=== PATIENT | male | born 1960 | race Caucasian/White ===

== ENCOUNTER 2018-04-23 10:55 | Observation (INO) | payer OTHER ==
[2018-04-23] MEDS ORDERED: BACITRACIN IRRIGATION/NS 50,000 UNITS/1,000 ML BTL IRR ONE (10:57)
[2018-04-23] MEDS ORDERED: ceFAZolin 2 GM/DEXTROSE 100 ML IV ONE (10:57)
[2018-04-23] MEDS ORDERED: NS 1,000 ML IV ONE (10:57)
[2018-04-23 11:28] LABS: PLATELET COUNT 177 10^3/uL (150-400)
[2018-04-23 11:38] LABS: PROTIME(PATIENT) 13.4 SEC (12.0-15.0)
--- NOTE | 2018-04-23 12:38 | PDGENHP ---
History & Physical Chief Complaint: CHF with NYHA class 2-3 symptoms, ICM History of Present Illness: History of ICM with CHF and NYHA class 2-3 symptoms. LVEF 30%, QRS duration 141ms Relevant Physical Exam: General: A&Ox4, no apparent distress. Respiratory: CTA. Cardiac: Regular rate and rhythm, S1, S2 Cardiorespiratory Assessment: Proceed with BiV ICD implant as planned for today.
[2018-04-23] MEDS ORDERED: MIDAZOLAM 2 MG/2 ML VIAL IVP ONE (12:52)
--- NOTE | 2018-04-23 12:52 | PDANEPAE ---
ANE History of Present Illness BiV implant, ICCM, EF 30% ANE Past Medical History - Cardiovascular History Hx Hypertension: Yes Hx Arrhythmias: No Hx Chest Pain: No Hx Coronary Artery / Peripheral Vascular Disease: Yes Hx CHF / Valvular Disease: Yes Hx Palpitations: No - Pulmonary History Hx COPD: No Hx Asthma/Reactive Airway Disease: No Hx Recent Upper Respiratory Infection: No Hx Oxygen in Use at Home: No Hx Sleep Apnea: No - Neurologic History Hx Cerebrovascular Accident: No Hx Seizures: No Hx Dementia: No - Endocrine History Hx Diabetes: No Hypothyroid: No Hyperthyroid: No Obesity: moderate - Renal History Hx Renal Disorders: No - Liver History Hx Hepatic Disorders: No - Neurological & Psychiatric Hx Hx Neurological and Psychiatric Disorders: No - Cancer History Hx Cancer: No - Congenital Disorder History Hx Congenital Disorders: No - GI History GERD: no Hx Gastrointestinal Disorders: No ANE Review of Systems Review of systems is: negative Review of Systems: - Exercise capacity Exercise capacity: >=4 METS (rides dirtbikes) ANE Patient History - Allergies Allergies/Adverse Reactions: No Known Allergies Allergy (Verified 04/21/18 11:24) - Home Medications Home Medications: Albuterol [Proventil Inhaler HFA (*)] 1 - 2 puffs IH Q4H PRN 04/21/18 [Last Taken 03/06/18 10:00] Aspirin [Aspirin 81mg (*)] 81 mg PO DAILY 04/21/18 [Last Taken 04/21/18 21:00] Atorvastatin Calcium [Lipitor 40 mg (*)] 40 mg PO HS 04/21/18 [Last Taken 22:00] Carvedilol [Coreg (*)] 3.125 mg PO BID 04/21/18 [Last Taken 04/22/18 22:00] Clopidogrel Bisulfate [Plavix (*)] 75 mg PO HS 04/21/18 [Last Taken 04/21/18 21: 00] Furosemide [Lasix 20 MG (*)] 20 mg PO Q2D 04/21/18 [Last Taken 04/22/18 12:00] Losartan Potassium [Cozaar 25 mg (*)] 25 mg PO DAILY 04/21/18 [Last Taken 12:00] Potassium Cl [Klor-Con] 10 meq PO Q2D 04/21/18 [Last Taken 04/22/18 12:00] Spironolactone [Aldactone 25 MG (*)] 25 mg PO DAILY@12 04/21/18 [Last Taken 12:00] - NPO status NPO Status: no food or drink >8 hours - Anes Hx Anes Hx: slow to awaken from anesthesia - Smoking Hx Smoking Status: Never smoked Marijuana use: No - Alcohol Use Alcohol Use: Heavy (3/day) - Family Anes Hx Family Anes Hx: none ANE Labs/Vital Signs - Labs Result Diagrams: 04/23/18 11:20 04/23/18 11:20 - Vital Signs Height: 172.72 cm Weight: 95.254 kg ANE Physical Exam - Airway Neck exam: FROM Mallampati Score: Class 2 - Pulmonary Pulmonary: no respiratory distress - Cardiovascular Cardiovascular: regular rate and rhythym - ASA Status ASA Status: III ANE Anesthesia Plan Anesthesia Plan: MAC
[2018-04-23] MEDS ORDERED: BUPIVACAINE 0.75% 10 ML SDV ONE (13:10)
[2018-04-23] MEDS ORDERED: LIDOCAINE 1% 300 MG/30 ML SDV ONE (13:10)
[2018-04-23] MEDS ORDERED: IOPAMIDOL (ISOVUE-300) 100 ML BTL ONE (13:11)
[2018-04-23] MEDS ORDERED: LIDOCAINE 2% 5 ML SDV ONE (13:23)
[2018-04-23] MEDS ORDERED: PROPOFOL/EMULSION 500 MG/50 ML BOTTLE IV ONE ×2 (13:23→14:26)
[2018-04-23] MEDS ORDERED: fentaNYL 100 MCG/2 ML INJ ONE (13:23)
[2018-04-23] MEDS ORDERED: PROPOFOL 200 MG/20 ML VIAL ONE (14:25)
--- NOTE | 2018-04-23 15:03 | CPEKG ---
Test Reason : OPEN Blood Pressure : / mmHG Vent. Rate : 066 BPM Atrial Rate : 066 BPM P-R Int : 189 ms QRS Dur : 134 ms QT Int : 412 ms P-R-T Axes : 062 -54 -42 degrees QTc Int : 432 ms Sinus rhythm Left bundle branch block Confirmed by Torsten Miller ([id number]) on 04/23/2018 3:03:05 PM Referred By: Сергей Holder Confirmed By:Torsten Miller
[2018-04-23] MEDS ORDERED: NALOXONE HCL 0.4 MG/ML INJ IVP PRN (15:17)
--- NOTE | 2018-04-23 15:17 | POSTANESTH ---
Post Anesthetic Evaluation Cardiovascular Status: Normal, Stable Respiratory Status: Normal, Stable Level of Consciousness/Mental Status: Can Participate in Eval Pain Control: Adequate, Prn Tx Ordered Nausea/Vomiting Control: Adequate, Prn Tx Ordered Complications Possibly Related to Anesthesia: None Noted
--- NOTE | 2018-04-23 17:05 | EPPROC ---
Electrophysiology Procedure Note: PROCEDURE PERFORMED: 1. Implantation of an A-BiV Implantable Cardioverter Defibrillator 2. Subclavian vein angiography 3. Fluoroscopy INDICATION: Ischemic cardiomyopathy NYHA class 2-3 symptoms QRS duration more than 120 milliseconds PROCEDURE NOTE: Patient presented to the cardiac catheterization laboratory in a fasting, post absorptive state. Dr. Bello Garcia administered sedation. The left infraclavicular area was prepped and draped in the usual sterile fashion. Lidocaine plus bupivacaine was used for local anesthesia. Left subclavian venography was performed by injection of iodinated contrast into the left antecubital vein. This was done to assure patency of the vein and also to assess for any anatomical aberrations. Using a combination of blunt and sharp dissection and electrocautery, the dissection was carried down to the prepectoral fascia. A pocket was made in this anatomical plane. All bleeding was controlled with electrocautery. The pocket was packed with gauze soaked in antibiotic solution. Fluoroscopy was utilized during the entire procedure for venous access and placement of the leads Using a direct stick technique the left extra thoracic axillary vein was accessed with 3 sticks using the modified Seldinger technique. Placement of the guide wires into the venous system was confirmed by low pressure blood return and also by visualizing the guide wires advancing into the inferior vena cava. A purse string suture was applied around the guide wires. Two #7 Setswana sheaths were advanced under fluoroscopic guidance over the guide wires. An active fixation ventricular ICD lead was advanced into the right ventricular apex and screwed in place. An active fixation atrial lead was advanced into the right atrial appendage and screwed in place. The peel away sheaths were removed. Pacing thresholds, sensing parameters and lead impedances were measured. There was no diaphragmatic stimulation at maximum output. The leads were sutured to the prepectoral fascia with 3 nonabsorbable sutures. A 9 Setswana sheath was advanced over the guide wire into the subclavian vein. Using a [employer] delivery system the coronary sinus ostium was engaged. Occlusion retrograde coronary sinus angiography was performed in three views. A coronary sinus quadrapolar lead was advanced into the coronary sinus. An angioplasty wire was advanced through the lead and advanced into the mid portion of the anterolateral branch of the coronary sinus. The lead was advanced over the angioplasty wire. Pacing threshold, sensing and impedance was determined. There was no diaphragmatic stimulation at maximum output. The delivery system and the 9 Fr sheath were peeled away. Again, pacing threshold, sensing and impedance was determined. There was no diaphragmatic stimulation at maximum output. The CS lead was secured to the prepectoral fascia with 3 nonabsorbable sutures. Pacing threshold and sensing parameters of the RA, RV and LV leads were checked again. The gauze packing was removed from the ICD pocket. The pocket was again inspected for any bleeding. The leads were attached to the pacemaker securely. The ICD was inserted into the pocket and secured in place with a nonabsorbable suture. Fluoroscopy was performed in TORRES and SPANISH planes to verify right sided placement of the leads. Also fluoroscopy of the pacemaker pocket was performed. The ICD pocket was closed in 3 layers with absorbable monocryl sutures and chace. Appropriate dressing was applied. The patient left the cardiac catheterization laboratory in stable condition. Serial Numbers: 1. Device [facility] [id number] 2. Atrial Lead [facility] 2088 TC SN [id number] 3. Right Ventricular Lead [facility] 7122 Q [id number] 4. Left Ventricular Lead [facility] 1457 Q [id number] Stimulation Thresholds & Impedance Measurements: 1. Atrial Lead P 4.7 mV 535 ohm 0.7 V 0.5 ms 2. Right Ventricular Lead R 11 mV 771 ohm 0.7 V 0.5 ms 3. Left Ventricular Lead 1228 ohm 1.3 V 0.5 ms Ho Pacing Parameters: 1. Pacing mode DDD 2. Lower rate60 ppm 3. Upper emxz816 ppm Tachycardia therapy parameters: VF zone : Detection 200 bpm, ATP while charging, 40 J VT zone : Detection 180 bpm ATP x 3, 26 J 40 J Patient Problems: Problems Problem Status Onset AMI (acute myocardial infarction) Acute
[2018-04-23] MEDS: CARVEDILOL 3.125 MG TAB PO SCH (20:29)
[2018-04-23] MEDS ORDERED: ATORVASTATIN CALCIUM 40 MG TAB PO SCH (21:00)
[2018-04-23] MEDS ORDERED: CLOPIDOGREL BISULFATE 75 MG TAB PO SCH (21:00)
[2018-04-24 04:52] LABS: PLATELET COUNT 152 10^3/uL (150-400)
[2018-04-24 05:19] LABS: INR 1.01 (0.83-1.16); PROTIME(PATIENT) 13.5 SEC (12.0-15.0)
[2018-04-24] MEDS: CARVEDILOL 3.125 MG TAB PO SCH (07:48)
--- NOTE | 2018-04-24 08:07 | CPEKG ---
Test Reason : OPEN Blood Pressure : / mmHG Vent. Rate : 062 BPM Atrial Rate : 061 BPM P-R Int : 198 ms QRS Dur : 136 ms QT Int : 437 ms P-R-T Axes : 066 -69 -63 degrees QTc Int : 444 ms Atrial-sensed ventricular-paced rhythm Confirmed by Torsten Miller ([id number]) on 04/24/2018 8:06:44 AM Referred By: Сергей Holder Confirmed By:Torsten Miller
[2018-04-24] MEDS ORDERED: PNEUMOCOCCAL 0.5ML VACCINE VIAL (PNEUMOVAX 23) IM ONE ×2 (08:43→12:30)
[2018-04-24] MEDS ORDERED: ASPIRIN 81 MG CHEWABLE TAB PO SCH (09:00)
[2018-04-24] MEDS ORDERED: LOSARTAN POTASSIUM 25 MG TAB PO SCH (09:00)
[2018-04-24 11:26] VITALS: BP 133/71
[2018-04-24] MEDS ORDERED: SPIRONOLACTONE 25 MG TAB PO SCH (12:00)
--- NOTE | 2018-04-24 14:58 | CPEKG ---
Test Reason : OPEN Blood Pressure : / mmHG Vent. Rate : 064 BPM Atrial Rate : 064 BPM P-R Int : 176 ms QRS Dur : 144 ms QT Int : 423 ms P-R-T Axes : 177 259 250 degrees QTc Int : 437 ms Atrial-sensed ventricular-paced complexes Confirmed by Torsten Miller ([id number]) on 04/24/2018 2:57:51 PM Referred By: Сергей Holder Confirmed By:Torsten Miller
--- NOTE | 2018-04-25 07:13 | GDS ---
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 ADMISSION DIAGNOSES: 1. Ischemic cardiomyopathy. 2. Congestive heart failure with [place] [employer] Class 2-3 symptoms. DISCHARGE DIAGNOSES: Ischemic cardiomyopathy and congestive heart failure, status post implantation of a biventricular implantable cardioverter defibrillator. HOSPITAL COURSE: Patient presented 04/23/2018, for implantation of a biventricular AICD in the setting of ischemic cardiomyopathy with NYHA class 2- 3 symptoms and wide QRS measuring 120 milliseconds. He underwent successful implantation of a biventricular implantable cardioverter-defibrillator with Dr. Сергей Holder, without any intra procedure complications. He has done very well in the postprocedure setting with device interrogation this morning demonstrating normal device function and chest x-ray demonstrating appropriate placement of all of his implanted leads. He has been up ambulating around his room this morning without issue, and he is appropriate and stable for discharge home today.. PHYSICAL EXAMINATION: GENERAL: He is alert and oriented x4. No apparent distress. VITAL SIGNS: Blood pressure 133/71, heart rate 66, respiratory rate 16, SpO2 95% on room air, and temp 36.8 degrees Celsius. RESPIRATORY: Lungs are clear to auscultation without adventitious breath sounds. CARDIAC: Normal S1, S2. No S3 or S4. Rhythm is regular. ABDOMEN: Normoactive bowel sounds x4 quadrants. No masses or tenderness. Abdomen soft to palpation. SKIN: Left pectoral incision with clean, dry dressing intact. No evidence of hematoma or oozing to this site. Skin is pink, dry without cyanosis, or clubbing.. EXTREMITIES: Pulses are 2+ bilaterally, no edema. LABORATORY STUDIES: Drawn April 24, demonstrated CBC and BMP stable compared to preprocedure. PROCEDURES: Implant of a biventricular implantable cardio defibrillator as mentioned above. Post procedure x-ray demonstrates normal lead positioning. DISCHARGE DISPOSITION: Patient will be discharged home in stable condition under activity restrictions as below. DISCHARGE MEDICATIONS: Please see discharge medication reconciliation sheet for full details. Please note that there have been no new medication changes during this hospitalization. DISCHARGE INSTRUCTIONS: Post AICD instructions reviewed with patient in detail. 1. He understands that he may not lift his left arm above the level of the shoulder for the next 6 weeks. 2. He will keep his left dressing clean and dry for the next week. If it becomes saturated for any reason, he will remove this distressing and keep it open to air. 3. He may drive 48 hours after his procedure and he will follow up in our clinic in 1 week for a device check. He will also follow up with Dr. Holder in the next 4 weeks. At the time verbalized understanding regarding all discharge instructions. He will contact our clinic with any new or concerning symptoms prior to these upcoming visits. Time spent on discharge greater than 30 minutes. /[id number]/MODL MTDD
[2018-04-25] MEDS ORDERED: FUROSEMIDE 20 MG TAB PO SCH (09:00)
[2018-04-25] MEDS ORDERED: POTASSIUM CL 10 MEQ TAB PO SCH (09:00)
== END 2018-04-24 13:40 | disposition home or self-care (01) ==
LOC: FCATH 10:55 → F2W 15:25
PROVIDERS: ADMIT Internal Medicine Cardiovascular Disease; ATTEND Internal Medicine Cardiovascular Disease
DX: I25.5 Ischemic cardiomyopathy (principal); I50.9 Heart failure, unspecified; I25.10 Atherosclerotic heart disease of native coronary artery without angina pectoris
CPT/HCPCS: C1769; C1777; C1882; C1898; C1900; G0008; G0009; G0378; J0690; J2250; J2704; J3010; Q9967

== ENCOUNTER 2018-04-28 09:32 | Emergency (ER) | payer OTHER ==
[2018-04-28 10:11] LABS: PLATELET COUNT 156 10^3/uL (150-400)
--- NOTE | 2018-04-28 10:13 | EDPHY ---
HPI/HX/ROS/PE/MDM Narrative: CHIEF COMPLAINT: Chest pain HISTORY OF PRESENT ILLNESS: This is an anticoagulated (clopidogrel, ASA) 57-year-old male who underwent implantation of a biventricular AICD in the setting of ischemic cardiomyopathy and CHF with Dr. Holder on 04/23/18, five days ago. He has complex cardiac history including three prior myocardial infarctions (most recently 5 years ago), stent placement x8, and heart failure, EF 30%. He presents today with chest pain which began around midnight. This is completely different from his post- surgical discomfort, which by yesterday had largely relieved, but also does not feel like his prior MIs. Initially, he developed cramping in his upper right chest. This then extended across his chest. It is exacerbated by movement and by deep inspiration. Endorses some mild lightheadedness and dizziness associated with his discomfort. He tried taking his nitroglycerin at home, as well as an antacid. Neither of these relieved his medications. No fever, chills , shortness of breath, palpitations, vomiting, diarrhea, urinary complaints, headache, lightheadedness. REVIEW OF SYSTEMS: A comprehensive 10 system review of systems is otherwise negative aside from elements mentioned in the history of present illness and medical decision making. PAST MEDICAL HISTORY: Biventricular AICD placement 04/23/18. History of multiple MIs. CAD s/p stent placement x8. Heart failure. Hernia surgery. GERD. Hypertension. No history of PEs or DVTs. Patient is anticoagulated on clopidogrel and aspirin. SOCIAL HISTORY: Lives in [place]. Single. Does not abuse tobacco, drugs, or alcohol. VITAL SIGNS: Reviewed by me GENERAL: Well-developed, well-nourished, resting comfortably in no respiratory distress. HEENT: Atraumatic. Eyes: No icterus, no injection. Mouth: moist mucous membranes. No erythema or lesions. Neck: supple with no adenopathy. LUNGS: Clear to auscultation bilaterally, no wheezes, rhonchi or rales. CARDIAC: Surgical dressing in place over left upper chest. Ecchymoses over the lower sub-sternal area - the patient notes he did not observe this yesterday evening before bed. Regular rate and rhythm. Distant heart sounds. CHEST: Mild tenderness to palpation across the anterior chest wall especially in the right pectoralis muscle. ABDOMEN: Soft, nontender, nondistended, bowel sounds normal. BACK: No CVA tenderness. EXTREMITIES: No trauma. No edema. Range of motion is normal throughout. NEURO: Alert and oriented, grossly nonfocal. SKIN: Warm and dry, no rash. PSYCHIATRIC: Normal mentation, no agitation. Portions of this note were transcribed by a medical laboratory technicians. I personally performed a history, physical exam, medical decision making, and confirmed accuracy of information the transcribed note. ED Course: 57 y/o male with complex cardiac history who is 5 days s/p biventricular AICD placement presents with chest pain which began around midnight. On exam he has ecchymoses over the lower sub-sternal area - the patient notes he did not observe this yesterday evening before bed. Heart sounds are distant. Plan for EKG, chest x-ray, labs including CBC chemistries, troponin. Patient also had echocardiogram ordered to evaluate for pericardial effusion. POC troponin 0.03. Plan for lab troponin for confirmation. 12-LEAD EKG: Please see the full report in [employer]. My interpretation: Ventricular-paced rhythm. Laboratory troponin 0.020. 12:[address] Rios, area manager. Echo reveals low ejection fraction which had been noted previously, although the ejection fraction is less than is post pacer placement.. No effusion. No etiology to explain the patient's chest pain on this echocardiogram. [employer] Supervisor from [facility] present to the emergency department. Patient's pacemaker/defibrillator was interrogated. No evidence of firing or defibrillation. Tech is somewhat concerned regarding settings on the pacemaker and positioning of the carotid sinus lead. Settings were adjusted. He discussed the situation with Dr. Holder. Patient has a follow-up appointment with Dr. Holder in 2 days. Patient was discharged from the emergency department. He was feeling significantly improved and anxious to go. After the patient left, patient's D-dimer was reported at 0.68, minimally elevated, with an age adjusted cutoff of 0.58. I attempted to reach the patient to discuss these findings. I did contact him on 04/30. Reports feeling well. He has had only intermittent episodes of chest discomfort and notes that he has had does have a ecchymosis on his anterior chest wall. He has an appointment tomorrow with Dr. Holder. He he will discuss the D-dimer results with Dr. Holder. I feel the patient is at low risk to have a pulmonary embolism, was not hypoxic, tachycardic, tachypneic on arrival to the emergency department and was on Eliquis as well as aspirin. However, as he does continue to have some anterior chest discomfort, patient will discuss with Dr. Holder tomorrow. MDM: After history and physical examination, the differential for chest pain was considered, including but not limited to, myocardial ischemia, acute coronary syndrome, pulmonary embolus, chest wall pain, pleural effusion, pleural inflammation and pulmonary infectious causes. - Data Points Imaging Results: CXR: Impression: Stable x3 days without delayed pneumothorax. Dictated By: Brandt Hanna MD Imaging: I viewed and interpreted images myself Laboratory Results: Laboratory Results 04/28/18 09:46 04/28/18 09:46 Point of Care Test Results: Chemistry 04/28/18 09:48 POC Troponin I 0.03 ng/mL ng/mL (0.00-0.08) General Time Seen by Provider: 04/28/18 09:56 Initial Vital Signs: Initial Vital Signs Temperature (C) 36.9 C 04/28/18 09:36 Heart Rate 75 04/28/18 09:36 Respiratory Rate 18 04/28/18 09:36 Blood Pressure 140/90 H 04/28/18 09:36 O2 Sat (%) 99 04/28/18 09:36 O2 Delivery Mode Room Air Allergies/Adverse Reactions: No Known Allergies Allergy (Verified 04/28/18 09:34) Home Medications: Medication Instructions Recorded Albuterol [Proventil Inhaler HFA 1 - 2 puffs IH Q4H PRN 04/21/18 (*)] Aspirin [Aspirin 81mg (*)] 81 mg PO DAILY 04/21/18 Atorvastatin Calcium [Lipitor 40 40 mg PO HS 04/21/18 mg (*)] Carvedilol [Coreg (*)] 3.125 mg PO BID 04/21/18 Clopidogrel Bisulfate [Plavix (*)] 75 mg PO HS 04/21/18 Furosemide [Lasix 20 MG (*)] 20 mg PO Q2D 04/21/18 Losartan Potassium [Cozaar 25 mg 25 mg PO DAILY 04/21/18 (*)] Potassium Cl [Klor-Con 10 meq (RX)] 10 meq PO Q2D 04/21/18 Spironolactone [Aldactone 25 MG 25 mg PO DAILY@12 04/21/18 (*)] Departure - Departure Disposition: Home, Routine, Self-Care Clinical Impression: Chest pain Qualifiers: Chest pain type: unspecified Qualified Code(s): R07.9 - Chest pain, unspecified Condition: Good Instructions: Chest Pain (ED) Additional Instructions: Return to the Emergency Department for fever, chest pain, shortness of breath, increasing pain or other worsening of condition. Take 650mg Tylenol every 4-6 hours as needed for pain. Follow up with your area manager as directed. Follow up with your primary care provider. Referrals: Pedrito Burger MD [Primary Care Provider] - As per Instructions Report Scribed for: Jaci Hardwick Report Scribed by: Brooke Patel Date of Report: 04/28/18 Time of Report: 10:13
[2018-04-28] MEDS ORDERED: PERFLUTREN LIPID MICROSPHERES 1.1 MG/ML VIAL IV ONE (10:51)
--- NOTE | 2018-04-28 12:49 | ECHO ---
[email or web address] [address] [address] Main: [phone] Fax: Transthoracic Echocardiogram Name: ALANIS DOUGLAS MR#: [id number] Study Date: 04/28/2018 Study Time: 10:36 AM Date of : 1960 Age: 57 year(s) Height: 172.7 cm (68 in.) Weight: 95.26 kg (210 lb.) BSA: 2.09 m2 Gender: Male Examination: Echo with Definity Indication: Chest pain/ecchymosis/post pacemaker placement Image Quality: Technically Difficult Contrast: Requested by: Jaci Hardwick BP: / Heart Rate: Rhythm: Indication: Chest pain/ecchymosis/post pacemaker placement Procedure Staff Kiln Mechanic: Makeda Sr RDCS Reading Physician: Mary Rios MD Requesting Provider: Conclusions: Severely dilated left ventricle. Severely reduced systolic LV function. The ejection fraction is estimated to be 20-25 %. Grade 3 diastolic dysfunction (reversible restrictive LV filling pattern). The Anterior septum is thin and akinetic. Remaining segments are severely hypokinetic. No evidence of LV apical thrombus with Definity imaging.. Normal size right ventricle. There is a pacemaker lead noted in the right ventricle. The left atrium is moderately dilated. Mild to moderate mitral regurgitation. No pericardial effusion. Compared with 03/24/2018 right heart pacemaker now seen. Ejection fraction is slightly worse. Measurements: Chambers Valvular Assessment AV/MV Valvular Assessment TV/PV Normal Normal Normal Name Value Range Name Value Range Name Value Range IVSd (2D): 0.3 cm (0.6 cm-1.1 AV Vmax: 1.09 m/s (1 m/s-1.7 cm) m/s) LVDd (2D): 7.2 cm (4.2 cm-5.9 AV maxP mmHg ( - ) cm) AV meanP mmHg ( - ) LVPWd (2D): 1.0 cm (0.6 cm-1 MV E Vmax: 0.90 m/s ( - ) cm) MV A Vmax: 0.78 m/s ( - ) EF Range: 20-25 % MV E/A: 1.15 ( - ) Continued Measurements: Chambers Valvular Assessment AV/MV Patient: ALANIS DOUGLAS Study Date: 04/28/2018 Page 1 of 2 10:36 AM Name Value Name Value LADs: 4.3 cm MV E/E' Septal: 22.60 LADs Lon.6 cm MV E/E' Lateral: 12.70 LA Area: 26.0 cm2 LA Volume: 96 ml LA Volume Index: 45.9 ml/m2 Findings: Left Ventricle: Severely dilated left ventricle. Severely reduced systolic LV function. The ejection fraction is estimated to be 20-25 %. Grade 3 diastolic dysfunction (reversible restrictive LV filling pattern). The Anterior septum is thin and akinetic. Remaining segments are severely hypokinetic. No evidence of LV apical thrombus with Definity imaging.. Right Ventricle: Normal size right ventricle. There is a pacemaker lead noted in the right ventricle. Left Atrium: The left atrium is moderately dilated. Right Atrium: The right atrium is normal in size. Mitral Valve: The mitral valve is normal in appearance and function. Mild to moderate mitral regurgitation. Aortic Valve: The aortic valve is normal in appearance and function. The aortic valve is tri-leaflet. Tricuspid Valve: The tricuspid valve is normal in appearance and function. Trivial tricuspid valve regurgitation. Pulmonic Valve: The pulmonic valve is normal in appearance and function. Aorta: The aorta is normal. Pericardium: No pericardial effusion. Exam Comments: (No Signature Object) Patient: ALANIS DOUGLAS Study Date: 04/28/2018 Page 2 of 2 10:36 AM [id number]
[2018-04-28 14:11] VITALS: BP 122/68
--- NOTE | 2018-04-30 16:10 | CPEKG ---
Test Reason : OPEN Blood Pressure : / mmHG Vent. Rate : 076 BPM Atrial Rate : 077 BPM P-R Int : 200 ms QRS Dur : 141 ms QT Int : 410 ms P-R-T Axes : 085 266 159 degrees QTc Int : 462 ms Atrial-sensed ventricular-paced complexes Confirmed by Jaci Hardwick ([id number]) on 04/30/2018 4:09:32 PM Referred By: PHYSICIAN ED Confirmed By:Jaci Hardwick
== END 2018-04-28 14:14 | disposition home or self-care (01) ==
LOC: UNDOADMOB 12:44
DX: R07.9 Chest pain, unspecified (principal); R42 Dizziness and giddiness; I11.0 Hypertensive heart disease with heart failure; I50.9 Heart failure, unspecified; I25.5 Ischemic cardiomyopathy; I25.2 Old myocardial infarction; K21.9 Gastro-esophageal reflux disease without esophagitis; Z79.01 Long term (current) use of anticoagulants; Z95.5 Presence of coronary angioplasty implant and graft; Z95.810 Presence of automatic (implantable) cardiac defibrillator
CPT/HCPCS: 84484-ER; Q9957

== ENCOUNTER → 2018-05-01 | Outpatient (CLI) | payer OTHER ==
[~2018-05-01] MED LIST: IOPAMIDOL (ISOVUE 370) 100 ML BTL IV ONE
== END ==
LOC: FIMAGING 11:57
PROVIDERS: ATTEND Internal Medicine Cardiovascular Disease
DX: R07.9 Chest pain, unspecified (principal); R06.02 Shortness of breath; R79.89 Other specified abnormal findings of blood chemistry
CPT/HCPCS: Q9967

== ENCOUNTER 2018-07-24 10:54 | Inpatient (IN) | payer OTHER ==
[2018-07-24] MEDS ORDERED: diphenhydrAMINE 25 MG CAP PO ONE ×2 (10:55→11:25)
[2018-07-24] MEDS ORDERED: NS 1,000 ML IV ONE (10:55)
[2018-07-24] MEDS ORDERED: FAMOTIDINE 20 MG TAB PO ONE (10:55)
[2018-07-24] MEDS ORDERED: DIAZEPAM 5 MG TAB PO ONE (10:55)
[2018-07-24] MEDS ORDERED: ASPIRIN EC 325 MG TAB PO ONE ×2 (10:55→11:25)
--- NOTE | 2018-07-24 11:10 | PDPROPOC ---
Sedation Plan of Care Sedation Plan of Care: vital signs stable, mental status noted, patient educated of risks, benefits, alternatives, patient can tolerate sedation ASA Classification: ASA 2 Planned drugs: fentanyl, midazolam Mallampati Score: Class 1 Mallampati Reference Image: Patient passed 3-3-2 rule?: Yes
--- NOTE | 2018-07-24 11:10 | PDHPUP ---
History & Physical Update H&P update statement: This history and physical update is based on an assessment of the patient which was completed after admission or registration (within 24 hours), but prior to the surgery/procedure. H&P update: H&P reviewed & patient examined, no change in patient's condition since H&P completed
[2018-07-24] MEDS ORDERED: FAMOTIDINE 20 MG TAB ONE (11:25)
[2018-07-24] MEDS ORDERED: DIAZEPAM 5 MG TAB ONE (11:27)
[2018-07-24 11:46] LABS: INR 1.01 (0.83-1.16); PROTIME(PATIENT) 12.9 SEC (12.0-15.0)
[2018-07-24 11:47] LABS: PLATELET COUNT 191 10^3/uL (150-400)
[2018-07-24] MEDS ORDERED: VERAPAMIL 5 MG/2 ML VIAL ONE (12:14)
[2018-07-24] MEDS ORDERED: MIDAZOLAM 2 MG/2 ML VIAL ONE ×2 (12:14→15:17)
[2018-07-24] MEDS ORDERED: HEPARIN 10,000 UNIT/10 ML MDV (1,000 UNIT/ML) ONE (12:14)
[2018-07-24] MEDS ORDERED: fentaNYL 100 MCG/2 ML INJ ONE (12:14)
[2018-07-24] MEDS ORDERED: IOPAMIDOL (ISOVUE 370) 100 ML BTL IV ONE (12:15)
[2018-07-24] MEDS ORDERED: LIDOCAINE 1% 5 ML SDV ONE (12:15)
--- NOTE | 2018-07-24 15:39 | PDDXCAT ---
Diagnostic Cath Note - . Date: 07/24/18 Technology Auditor: Michael Indication: Sustained (>30 sec) monomorphic ventricular tachycardia - Procedure Access: left wrist Procedure: left heart catheterization, coronary angiography, left ventriculogram - Materials Left Heart Cath size: 5F Left Heart Cath materials: JL4.0, pigtail, Kingston's R - Findings-Left Heart Catheterization LM: Unobstructed LAD: Heavily stented with diffuse InStent restenosis in the mid and distal portion. 2 principal diagonals with ostial disease. Distal to the stents 80% stenosis diffusely. LCX: 50% proximal stenosis. RCA: At the crux of the heart there is critical 85-90% stenosis involving 2 limbs. Distal to prior stenting there is restenosis with 90% stenosis. EDP: 18 mm of mercury LVEF: 20% with anterior hypokinesis, at least 2 to 3+ MR Complications: Under ability to access the right radial artery Estimated blood loss: <50ml Closure method: TR Band Assessment: 1. Diffuse three-vessel coronary disease with failed LAD distal right coronary stents. 2. Severe ischemic cardiomyopathy ejection fraction at best 20% with anterior regional wall motion abnormalities. 3. Dislodged LV coronary sinus lead. 4. At least 2 to 3+ mitral regurgitation. 5. Recurrent ventricular tachycardia requiring shock. Plan: Plan: 1. Recommend assessment of myocardial Valley ability of the anterior wall either with recruitment using dobutamine or thallium. 2. Surgical consultation for complete revascularization. While he has several targets of the distal right which I think would be amenable his LAD targets are not as robust. 3. Evaluation of the mitral valve considerations for concomitant mitral valve repair/replacement. 4. If he is felt not to be a surgical candidate would consider Impella revascularization. 5. Based on his young age would consider transplantation as an option for refractory VT and diffuse distal coronary artery disease. Patient Problems: Problems Problem Status Onset Chest pain Acute Congestive heart failure (CHF) Acute AMI (acute myocardial infarction) Acute
[2018-07-24] MEDS ORDERED: ALBUTEROL 60 PUFFS/8 GM MDI IH PRN (16:34)
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
[2018-07-24] MEDS ORDERED: TEMAZEPAM 15 MG CAP PO PRN (21:00)
[2018-07-24] MEDS ORDERED: ATORVASTATIN CALCIUM 40 MG TAB PO SCH (21:00)
[2018-07-24] MEDS ORDERED: CHLORHEXIDINE GLUC HIBICLENS 118 ML BTL TP SCH (21:00)
[2018-07-24] MEDS: SENNOSIDES/DOCUSATE SODIUM TAB PO SCH (21:56)
[2018-07-24] MEDS: CARVEDILOL 3.125 MG TAB PO SCH (21:57)
[2018-07-24] MEDS: MUPIROCIN 2% 22 GM OINT NS SCH (22:26)
--- NOTE | 2018-07-25 07:07 | PDHPUP ---
History & Physical Update H&P update statement: This history and physical update is based on an assessment of the patient which was completed after admission or registration (within 24 hours), but prior to the surgery/procedure. H&P update: no change in patient's condition since H&P completed (Patient is right handed. No instruments. Left arm marked. CABG/MVRR) H&P changes: Patient is right handed. Does not play any instruments. CABG + radial harvest - MVR/R (tissue if replaced) w Dr. Mathew later today. Consent obtained. CUS final report is pending.
[2018-07-25] MEDS ORDERED: PROTAMINE SULFATE 50 MG/5 ML VIAL IVP ONE (08:43)
[2018-07-25] MEDS ORDERED: ALBUMIN 5% 250 ML BOTTLE IV ONE ×2 (08:43→16:53)
[2018-07-25] MEDS ORDERED: CALCIUM CHLORIDE 1 GM/10 ML INJ ONE (08:44)
[2018-07-25] MEDS ORDERED: NA BICARBONATE 50 MEQ/50 ML VIAL ONE (08:44)
[2018-07-25] MEDS ORDERED: LIDOCAINE 2% 100 MG/5 ML SYR ONE (08:44)
[2018-07-25] MEDS ORDERED: AMINOCAPROIC ACID 5 GM/20 ML VIAL ONE (08:44)
[2018-07-25] MEDS ORDERED: MILRINONE/DEXTROSE/100 ML BAG IV ONE (08:44)
[2018-07-25] MEDS ORDERED: MAGNESIUM SULFATE 1 GM/2 ML VIAL ONE (08:45)
[2018-07-25] MEDS ORDERED: AMIODARONE HCL 150 MG/3 ML VIAL ONE (08:45)
[2018-07-25] MEDS ORDERED: methylPREDNISolone SOD SUCC 1 GM/8 ML VIAL ONE (08:45)
[2018-07-25] MEDS ORDERED: DOPamine/DEXTROSE 400 MG/250 ML BAG IV ONE (08:45)
[2018-07-25] MEDS ORDERED: niCARdipine/NACL/200 ML BAG IV ONE ×2 (08:45→18:01)
[2018-07-25] MEDS ORDERED: HEPARIN 10,000 UNIT/10 ML MDV (1,000 UNIT/ML) ONE (08:45)
[2018-07-25] MEDS ORDERED: CITRATE DEXTROSE SOLN 500 ML BAG ONE (08:45)
[2018-07-25] MEDS ORDERED: ADENOSINE 6 MG/2 ML VIAL ONE (08:45)
[2018-07-25] MEDS ORDERED: NITROGLYCERIN/D5W 50 MG/250 ML BOTTLE IV ONE (08:46)
[2018-07-25] MEDS ORDERED: ceFAZolin 1 GM VIAL ONE (08:46)
[2018-07-25] MEDS ORDERED: NOREPINEPHRINE BITARTRATE 16 MG in NS 250 ML IV ONE (09:00)
[2018-07-25] MEDS ORDERED: CITRATE DEXTROSE SOLN 500 ML BAG MISC ONE (09:00)
[2018-07-25] MEDS ORDERED: INSULIN REGULAR HUMAN 100 UNIT in NS 100 ML IV ONE (09:00)
[2018-07-25] MEDS ORDERED: PHENYLEPHRINE HCL 50 MG in NS 250 ML IV ONE (09:00)
[2018-07-25] MEDS ORDERED: CARDIOPLEGIC SOLUTION 1,052.8 ML PF ONE (09:00)
[2018-07-25] MEDS ORDERED: ceFAZolin 2 GM/DEXTROSE 100 ML IV ONE (09:00)
[2018-07-25] MEDS ORDERED: NITROGLYCERIN/DEXTROSE 250 ML IV ONE (09:00)
[2018-07-25] MEDS ORDERED: AMINOCAPROIC ACID 5 GM/20 ML VIAL IV ONE (09:00)
[2018-07-25] MEDS ORDERED: DOBUTamine/DEXTROSE 250 ML IV ONE (09:00)
[2018-07-25] MEDS ORDERED: PAPAVERINE HCL 240 MG in NS (SYRINGE) 32 ML IV ONE (09:00)
[2018-07-25] MEDS ORDERED: VERAPAMIL 5 MG, NITROGLYCERIN 2.5 MG, HEPARIN 500 UNIT, SODIUM BICARBONATE 0.2 MEQ in L... MISC ONE (09:00)
[2018-07-25] MEDS ORDERED: ASPIRIN 81 MG CHEWABLE TAB PO SCH (09:00)
[2018-07-25] MEDS ORDERED: MILRINONE/DEXTROSE 100 ML IV ONE (09:00)
[2018-07-25] MEDS ORDERED: LOSARTAN POTASSIUM 25 MG TAB PO SCH (09:00)
[2018-07-25] MEDS ORDERED: MANNITOL 25% 12.5 GM/50 ML VIAL IVP ONE (09:00)
[2018-07-25] MEDS ORDERED: LR 1,000 ML IV ONE (09:17)
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
[2018-07-25] MEDS ORDERED: MIDAZOLAM 2 MG/2 ML VIAL IVP ONE (11:31)
--- NOTE | 2018-07-25 11:31 | PDANEPAE ---
ANE History of Present Illness cab, mvr, epicardial lead ANE Past Medical History - Cardiovascular History Hx Hypertension: Yes Hx Arrhythmias: Yes Hx Chest Pain: No Hx Coronary Artery / Peripheral Vascular Disease: Yes Hx CHF / Valvular Disease: Yes Hx Palpitations: No - Pulmonary History Hx COPD: No Hx Asthma/Reactive Airway Disease: No Hx Recent Upper Respiratory Infection: No Hx Oxygen in Use at Home: No Hx Sleep Apnea: No Sleep Apnea Screening Result - Last Documented: Positive - Neurologic History Hx Cerebrovascular Accident: No Hx Seizures: No Hx Dementia: No - Endocrine History Hx Diabetes: No Hypothyroid: No Hyperthyroid: No Obesity: mild - Renal History Hx Renal Disorders: No - Liver History Hx Hepatic Disorders: No - Neurological & Psychiatric Hx Hx Neurological and Psychiatric Disorders: No - Cancer History Hx Cancer: No - Congenital Disorder History Hx Congenital Disorders: No - GI History GERD: mild Hx Gastrointestinal Disorders: No - Chronic Pain History Chronic Pain: No ANE Review of Systems Review of Systems: - Exercise capacity Exercise capacity: <4 METS - Pacemaker Pacemaker Supersonic Engineer: [employer] [place] Pacemaker Model: [id number] Pacemaker Mode: DDD ANE Patient History - Allergies Allergies/Adverse Reactions: No Known Allergies Allergy (Verified 04/28/18 09:34) - Home Medications Home Medications: Albuterol [Proventil Inhaler HFA (*)] 1 - 2 puffs IH Q4H PRN 04/21/18 [Last Taken 03/06/18 10:00] Aspirin [Aspirin 81mg (*)] 81 mg PO DAILY 04/21/18 [Last Taken 07/22/18] Atorvastatin Calcium [Lipitor 40 mg (*)] 40 mg PO HS 04/21/18 [Last Taken ] Carvedilol [Coreg (*)] 3.125 mg PO BID 04/21/18 [Last Taken 07/24/18] Clopidogrel Bisulfate [Plavix (*)] 75 mg PO HS 04/21/18 [Last Taken 07/24/18] Furosemide [Lasix 20 MG (*)] 20 mg PO Q2D 04/21/18 [Last Taken 07/22/18] Losartan Potassium [Cozaar 25 mg (*)] 25 mg PO DAILY 04/21/18 [Last Taken ] Potassium Cl [Klor-Con 10 meq (RX)] 10 meq PO Q2D 04/21/18 [Last Taken 07/23/18] Spironolactone [Aldactone 25 MG (*)] 25 mg PO DAILY@12 04/21/18 [Last Taken ] - NPO status NPO Status: no food or drink >8 hours NPO Since - Liquids (Date): 07/25/18 NPO Since - Liquids (Time): 00:00 NPO Since - Solids (Date): 07/25/18 NPO Since - Solids (Time): 00:00 - Smoking Hx Smoking Status: Never smoked ANE Labs/Vital Signs - Labs Result Diagrams: 07/24/18 11:20 07/25/18 04:06 - Vital Signs Blood Pressure: 126/88 Heart Rate: 63 Respiratory Rate: 18 O2 Sat (%): 97 Height: 172.72 cm Weight: 94 kg ANE Physical Exam - Airway Mallampati Score: Class 2 Mouth exam: normal dental/mouth exam - Pulmonary Pulmonary: no respiratory distress - Cardiovascular Cardiovascular: regular rate and rhythym - ASA Status ASA Status: IV ANE Anesthesia Plan Anesthesia Plan: general endotracheal anesthesia Lines/Monitors: arterial line, central line, ELVIS
[2018-07-25] MEDS ORDERED: fentaNYL 250 MCG/5 ML INJ ONE ×2 (11:42)
[2018-07-25] MEDS ORDERED: MIDAZOLAM 2 MG/2 ML VIAL ONE (11:42)
[2018-07-25] MEDS ORDERED: SUCCINYLCHOLINE CHLORIDE 200 MG/10 ML SYR IVP ONE (11:42)
[2018-07-25] MEDS ORDERED: PROPOFOL 200 MG/20 ML VIAL ONE (11:42)
[2018-07-25] MEDS ORDERED: ROCURONIUM 100 MG/10 ML VIAL ONE (11:42)
[2018-07-25] MEDS ORDERED: LIDOCAINE 2% 5 ML SDV ONE (11:43)
--- NOTE | 2018-07-25 11:51 | ECHO ---
[email or web address] [address] [address] Main: [phone] Echocardiography Examination Transthoracic Name: ALANIS DOUGLAS MR#: [id number] Study Date: 07/24/2018 Study Time: 03:53 PM Date of : 1960 Age: 57 year(s) Height: 172.7 cm (68 in.) Weight: 95.26 kg (210 lb.) BSA: 2.09 m2 Gender: Male Examination: Echo Contrast: Image Quality: Rhythm: Pacemaker rhythm Heart Rate: 53 bpm BP: 145 mmHg/86 mmHg Indication: Post Cath Procedure Staff Referring Physician: Cooker Tender: Jerrod Encinas RDCS Reading Physician: Rios Rodriguez MD Requesting Provider: Ordering Physician: Rios Rodriguez MD Indication: Post Cath Measurements Chambers AV/MV Label Value Normal Value Label Value Normal Value LVOT Vmax 0.63 m/s (0.7m/s - 1.1m/s) AV PGmax 5 mmHg LVOTd 2.1 cm (1.9cm - 2.1cm) AV PGmean 3 mmHg LVOT VTI 11.3 cm (18cm - 22cm) AV Vmax 1.14 m/s LVDd, MM 8.9 cm (4.2cm - 5.9cm) KAMILLA (Vmax) 1.9 cm2 LVDd, 2D 7.3 cm (4.2cm - 5.9cm) KAMILLA (VTI) 1.6 cm2 LVDs, MM 8.3 cm (2cm - 3.8cm) MV E Vmax 0.83 m/s LVDs, 2D 6.9 cm (2.1cm - 4cm) MV A Vmax 0.34 m/s IVSd, MM 1.1 cm (0.6cm - 0.9cm) MV E/A 2.44 IVSd, 2D 0.7 cm (0.6cm - 1.1cm) MV E/E' lateral 17.8 LVPWd, MM 1.1 cm (0.6cm - 1cm) MV E/E' septal 33 (0.5 - 1.7) LVPWd, 2D 0.9 cm (0.6cm - 1cm) MV E' septal 0.03 m/s LVEF, 2D 12 % (54% - 74%) MV VTI 38.5 cm LVOT PGmean 1 mmHg MVA D (continuity eq.) 1 cm2 LVOT Vmean 0.39 m/s MV PGmax 3 mmHg LADs, 2D 4.1 cm (3cm - 4cm) MV PGmean 1 mmHg Additional Vessels MV Mayela 3.8 cm Label Value Normal Value MR Reg. Volume 47 ml AoRoot, MM 3.4 cm (2.2cm - 3.7cm) MR Reg. Fraction 11 % MR Vmax 4.51 m/s Patient: ALANIS DOUGLAS Study Date: 07/24/2018 Page 1 of 3 03:53 PM MR VTI 164 cm MR (ERO) 0.29 cm2 MV E' lateral 0.05 m/s MR PISA Radius 0.8 cm MV E/E' mean 20.75 MR PISA Alias V. 31.3 cm/s MV E' mean 0.04 m/s TV/PV Label Value Normal Value RA Pressure 5 mmHg RVSP 31 mmHg TR Pmax 26 mmHg TR Vmax 2.57 m/s PV PGmax 2 mmHg PV Vmax, Caliper 0.77 m/s (0.6m/s - 0.9m/s) Conclusions Overall Conclusions: No pericardial effusion. Severely reduced LV systolic function. Anterior apical akinesis with thinning consistent with prior myocardial infarction. Pacing wires in the right heart. Normal RV systolic function. Moderate mitral regurgitation. Mild tricuspid regurgitation with right ventricular systolic pressure 31 mm of mercury. Findings Left Ventricle: The left venticle is severly dilated.. Severely reduced systolic left ventricular function. The EF is visually estimated to be 15 %. Left ventricle wall thickness is normal. Grade III Diastolic Dysfunction. Right Ventricle: Normal size right ventricle. There is a pacing/ICD wire present in the right ventricle. Left Atrium: The left atrium is moderately dilated. Right Atrium: The right atrium is normal in size. Mitral Valve: Moderate mitral regurgitation. Aortic Valve: Aortic leaflets are structurally normal. No significant aortic valve regurgitation. There is no aortic stenosis. The aortic valve is trileaflet. Tricuspid Valve: Tricuspid valve leaflets are normal in appearance and function. Mild tricuspid regurgitation. Right Ventricular systolic pressure is measured at 31 mmHg. Pulmonary artery pressure normal. Pulmonic Valve: Pulmonic leaflets are normal in appearance and function. No pulmonic valve regurgitation is evident. Aorta: The aorta is normal. The aortic root size in M-mode measures 3.4 cm. Aorta Measurements AoRoot, MM is 3.4 cm. Pericardium: No pericardial effusion. Exam Details Patient: ALANIS DOUGLAS Study Date: 07/24/2018 Page 2 of 3 03:53 PM Procedure Ordered: Echo (No Signature Object) Patient: ALANIS DOUGLAS Study Date: 07/24/2018 Page 3 of 3 03:53 PM [id number]
[2018-07-25] MEDS ORDERED: SPIRONOLACTONE 25 MG TAB PO SCH (12:00)
[2018-07-25] MEDS ORDERED: PAPAVERINE HCL 60 MG/2 ML SDV ONE (12:10)
[2018-07-25] MEDS ORDERED: MINERAL OIL 10 ML VIAL ONE ×2 (12:10→16:17)
[2018-07-25] MEDS ORDERED: VERAPAMIL 5 MG/2 ML VIAL ONE (12:10)
--- NOTE | 2018-07-25 13:12 | ASMTCMCOM ---
CM Note CM Note Notes: Patient to undergo CVS surgery today. Needs TBD at this time. Plan: TBD Date Signed: 07/25/2018 01:11 PM Electronically Signed By:Joelle Whitaker RN
[2018-07-25] MEDS ORDERED: EPINEPHrine 8 MG in NS 250 ML IV ONE (16:00)
[2018-07-25] MEDS ORDERED: ROCURONIUM 50 MG/5 ML VIAL ONE (16:13)
[2018-07-25] MEDS: SENNOSIDES/DOCUSATE SODIUM TAB PO SCH (16:49)
[2018-07-25] MEDS: MUPIROCIN 2% 22 GM OINT NS SCH ×2 (16:49→21:44)
[2018-07-25] MEDS: CARVEDILOL 3.125 MG TAB PO SCH (16:49)
[2018-07-25] MEDS ORDERED: ACETAMINOPHEN 650 MG SUPP PR PRN (17:21)
[2018-07-25] MEDS ORDERED: CEPACOL LOZENGE PO PRN (17:21)
[2018-07-25] MEDS ORDERED: ALBUMIN 5% 250 ML IV PRN (17:21)
[2018-07-25] MEDS ORDERED: SODIUM CL NASAL 45 ML BTL EACHNARE PRN (17:21)
[2018-07-25] MEDS ORDERED: ONDANSETRON 4 MG/2 ML VIAL IVP PRN (17:21)
[2018-07-25] MEDS ORDERED: D50W 25 GM/50 ML SYR IVP PRN (17:21)
[2018-07-25] MEDS ORDERED: ONDANSETRON DISINTEGRATING 4 MG TAB PO PRN (17:21)
[2018-07-25] MEDS ORDERED: AMIODARONE HCL 200 ML IV ONE ×2 (17:21→17:57)
[2018-07-25] MEDS ORDERED: BISACODYL 10 MG SUPP PR PRN (17:21)
[2018-07-25] MEDS ORDERED: MEPERIDINE 25 MG/0.5 ML AMP IVP PRN (17:21)
[2018-07-25] MEDS ORDERED: MAGNESIUM HYDROXIDE 30 ML UDCUP PO PRN (17:21)
[2018-07-25] MEDS ORDERED: POTASSIUM Cl (KCl) 50 ML IV PRN (17:21)
[2018-07-25] MEDS ORDERED: PANTOPRAZOLE SODIUM 40 MG VIAL IVP ONE (17:21)
[2018-07-25] MEDS ORDERED: NS 1,000 ML IV SCH (17:30)
[2018-07-25] MEDS ORDERED: INSULIN REGULAR HUMAN 100 UNIT in NS 100 ML IV SCH (17:30)
[2018-07-25] MEDS ORDERED: AMIODARONE HCL 200 ML IV SCH (17:30)
--- NOTE | 2018-07-25 17:57 | POSTANESTH ---
Post Anesthetic Evaluation Cardiovascular Status: Other, See Comment (stable on infusions) Respiratory Status: Other, See Comment (stable on vent) Level of Consciousness/Mental Status: Unconscious Pain Control: Adequate, Prn Tx Ordered Nausea/Vomiting Control: Adequate, Prn Tx Ordered Complications Possibly Related to Anesthesia: None Noted
[2018-07-25] MEDS ORDERED: NALOXONE HCL 0.4 MG/ML INJ IVP PRN (17:58)
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
[2018-07-25] MEDS ORDERED: *ANGINA PROTOCOL*NITROGLYCERIN/DEXTR IV SCH (19:30)
[2018-07-25] MEDS: fentaNYL 100 MCG/2 ML INJ IVP PRN ×2 (19:45→22:15)
[2018-07-25] MEDS ORDERED: niCARdipine/NACL 200 ML IV SCH (20:00)
[2018-07-25] MEDS: DEXMEDETOMIDINE HCL 400 MCG in NS 100 ML IV SCH ×2 (20:30→23:09)
[2018-07-25] MEDS: ceFAZolin 2 GM/DEXTROSE 100 ML IV SCH (21:25)
[2018-07-26] MEDS ORDERED: AMIODARONE HCL 540 MG in D5W 300 ML IV ONE
[2018-07-26] MEDS: fentaNYL 100 MCG/2 ML INJ IVP PRN ×2 (02:13→13:50)
[2018-07-26] MEDS ORDERED: NA BICARBONATE 50 MEQ/50 ML VIAL ONE (04:32)
[2018-07-26] MEDS: ceFAZolin 2 GM/DEXTROSE 100 ML IV SCH ×3 (05:11→22:03)
[2018-07-26 06:16] LABS: PLATELET COUNT 85 10^3/uL (150-400)
[2018-07-26] MEDS: HEPARIN 5,000 UNIT/0.5 ML INJ SC SCH ×3 (06:19→21:52)
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
[2018-07-26] MEDS ORDERED: POTASSIUM CL 10 MEQ TAB PO SCH (09:00)
[2018-07-26] MEDS ORDERED: FUROSEMIDE 20 MG TAB PO SCH (09:00)
[2018-07-26] MEDS ORDERED: FUROSEMIDE 20 MG/2 ML VIAL ONE (09:26)
[2018-07-26] MEDS ORDERED: FUROSEMIDE 20 MG/2 ML VIAL IVP ONE (09:27)
[2018-07-26] MEDS: MUPIROCIN 2% 22 GM OINT NS SCH ×2 (09:31→21:52)
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
[2018-07-26] MEDS ORDERED: FUROSEMIDE 40 MG/4 ML VIAL IVP ONE ×2 (15:15→19:15)
[2018-07-26] MEDS: METOCLOPRAMIDE 10 MG/2 ML VIAL IVP PRN (15:35)
[2018-07-26] MEDS ORDERED: ASPIRIN 81 MG CHEWABLE TAB TUBE PRN (17:21)
[2018-07-26] MEDS: PANTOPRAZOLE SODIUM 40 MG TAB PO SCH (17:21)
[2018-07-26] MEDS: ASPIRIN 81 MG CHEWABLE TAB PO SCH (17:21)
[2018-07-26] MEDS: HYDROCODONE/APAP 5/325 TAB PO PRN ×2 (17:36→22:03)
[2018-07-26] MEDS: SENNOSIDES/DOCUSATE SODIUM TAB PO SCH (20:01)
[2018-07-26] MEDS: POLYETHYLENE GLYCOL 3350 17 GM PKT PO PRN (20:02)
[2018-07-27] MEDS: ceFAZolin 2 GM/DEXTROSE 100 ML IV SCH (05:27)
[2018-07-27 05:56] LABS: PLATELET COUNT 99 10^3/uL (150-400)
[2018-07-27] MEDS: HEPARIN 5,000 UNIT/0.5 ML INJ SC SCH ×3 (05:59→20:13)
[2018-07-27 06:05] LABS: INR 1.23 (0.83-1.16)
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
[2018-07-27] MEDS: HYDROCODONE/APAP 5/325 TAB PO PRN (07:27)
--- NOTE | 2018-07-27 09:22 | PDINTPN ---
[employer] Progress Note Assessment/Plan: Assessment/plan: * Coronary artery disease * Mitral regurgitation * Status post coronary artery bypass graft with mitral ring annuloplasty * Ischemic cardiomyopathy * Gastroesophageal reflux disease * Respiratory-stable post extubation * Pain-well controlled * VT prophylaxis * Stress ulcer prophylaxis * PT/OT Subjective: Sitting up in bed. Comfortable. No current complaints. Pain well tolerated. Objective: Vital Signs Temp Pulse Resp BP Pulse Ox 37.3 C 67 17 102/70 99 07/27/18 08:00 07/27/18 08:00 07/27/18 08:00 07/27/18 08:00 07/27/18 08:00 Laboratory Results 07/27/18 05:30 07/27/18 05:30 07/26/18 07/27/18 07/28/18 05:59 05:59 05:59 Intake Total 3074 2837 Output Total 3140 2685 Balance -66 152 PT 15.0 SEC (12.0-15.0) 07/27/18 05:30 INR 1.23 (0.83-1.16) H 07/27/18 05:30 - Time Spent With Patient Time Spent With Patient: 35 min of time spent with patient, over 1/2 involved with coordination of care or counseling. Case discussed with Nursing and cardiothoracic PA Physical Exam - Physical Exam General Appearance: alert, no apparent distress EENT: PERRL/EOMI Neck: non-tender, supple Respiratory: chest non-tender, crackles (Few basilar) Cardiac/Chest: normal peripheral pulses, regular rate, rhythm, systolic murmur Abdomen: normal bowel sounds, non-tender, soft Male Genitalia: deferred Rectal: deferred Skin: normal color, warm/dry Extremities: normal range of motion, non-tender, normal inspection, normal capillary refill Neuro/Psych: no motor/sensory deficits, alert, normal mood/affect, oriented x 3 ICD10 Worksheet Patient Problems: Problems Problem Status Onset On intra-aortic balloon pump assist Acute S/P CABG x 3 Acute S/P MVR (mitral valve repair) Acute S/P left atrial appendage ligation Acute AMI (acute myocardial infarction) Acute Chest pain Acute Congestive heart failure (CHF) Acute
[2018-07-27] MEDS: PANTOPRAZOLE SODIUM 40 MG TAB PO SCH (09:58)
[2018-07-27] MEDS: ASPIRIN 81 MG CHEWABLE TAB PO SCH (09:58)
[2018-07-27] MEDS: SENNOSIDES/DOCUSATE SODIUM TAB PO SCH ×2 (09:59→20:10)
[2018-07-27] MEDS: MUPIROCIN 2% 22 GM OINT NS SCH (10:03)
--- NOTE | 2018-07-27 10:32 | SOAPPROG ---
SOMILADY Progress Note Assessment/Plan: Assessment: CHF consultations performed and dictated. 57 y/o man first [place] 2000 with severe 3V CAD, preop LVEF 15%, normal RVEF and moderate MR and malignant VT underwent CABG x 3V, MV repair and excision of DAVID POD #2 now. He is in NSR and not on IV inotropic support. He was on low dose Coreg, Aldactone and Losartan preop. He appears euvolemic today. PLAN; 1)no change in current meds today 2)probably start back on PO CHF meds tomorrow if SBP > 100 and serum creatinine stable. Will follow with you. Thanks. 07/27/18 10:28 Objective: Vital Signs Temp Pulse Resp BP Pulse Ox 37.3 C 67 17 102/70 99 07/27/18 08:00 07/27/18 08:00 07/27/18 08:00 07/27/18 08:00 07/27/18 08:00 Laboratory Results 07/27/18 05:30 07/27/18 05:30 07/26/18 07/27/18 07/28/18 05:59 05:59 05:59 Intake Total 3074 2837 Output Total 3140 6505 Balance -66 152 PT 15.0 SEC (12.0-15.0) 07/27/18 05:30 INR 1.23 (0.83-1.16) H 07/27/18 05:30 ICD10 Worksheet Patient Problems: Problems Problem Status Onset On intra-aortic balloon pump assist Acute S/P CABG x 3 Acute S/P MVR (mitral valve repair) Acute S/P left atrial appendage ligation Acute AMI (acute myocardial infarction) Acute Chest pain Acute Congestive heart failure (CHF) Acute
--- NOTE | 2018-07-27 11:10 | ASMTCMCOM ---
CM Note CM Note Notes: Spoke w patient about d/c planning. He recently moved to [place] and drove himself back to [place] for an appt w Dr Rodriguez. He is now POD #1 CABG x3 and MVR. We discussed that it is not likely he can drive himself back to [place] anytime soon. When I asked if there was anyone here he could stay with upon d/c, he said "sorta." It doesn't sound like he has any good options. We discussed SNF which he seemed to agree was the best plan. I sent referrals to [facility] and [facility]. He has [employer], so we'll see. Case Management will follow. Date Signed: 07/27/2018 11:09 AM Electronically Signed By:Keara Grande RN
[2018-07-27] MEDS: AMIODARONE HCL 200 MG TAB PO SCH (11:40)
[2018-07-27] MEDS: OXYCODONE/APAP 5/325 TAB PO PRN ×2 (12:12→18:18)
[2018-07-27] MEDS: METOCLOPRAMIDE 10 MG/2 ML VIAL IVP PRN (12:13)
[2018-07-27] MEDS ORDERED: WARFARIN SODIUM 3 MG TAB PO ONE (16:00)
--- NOTE | 2018-07-27 16:04 | GCON ---
[f rep st] CONSULTATION CONGESTIVE HEART FAILURE CONSULT DATE OF CONSULTATION: 07/27/2018 REFERRING PHYSICIAN: Kobi Mathew DO REASON FOR CONSULTATION: Evaluate gentleman status post high risk CABG and mitral valve repair surgery with severe LV dysfunction preoperatively and recommend future CHF management. HISTORY OF PRESENT ILLNESS: I was asked by Dr. Kobi Mathew to consult for the above reasons. The patient is a 57-year-old gentleman with the following cardiac history. He reports he had his first GA approximately 18 years ago in 2000. He has had coronary artery disease and ventricular tachycardia with an AICD in. A heart catheterization demonstrates severe 3-vessel disease. An echo on 07/24/2018, demonstrated an LVEF of 15% with normal RV function, LVEDD 6.9 cm and moderate mitral regurgitation with mild tricuspid insufficiency and an estimated PA systolic pressure of 31 mmHg. He underwent sternotomy with CABG x3 vessels, mitral valve surgical annular ring and ligation of left atrial appendage 2 days ago. He is extubated currently and not on any IV pressors. He is having some pain from his drainage tubes. He reports no rest shortness of breath, lightheadedness or ventricular tachycardia. PAST MEDICAL HISTORY: Coronary disease, status post CABG as per HPI; chronic ischemic systolic heart failure with an LVEF of 15%; malignant ventricular tachycardia and previous medical noncompliance. PAST SURGICAL HISTORY: AICD and CABG x3 vessels and mitral valve repair as per HPI. CURRENT MEDICATIONS: Amiodarone 400 mg daily, aspirin 81 mg per day, atorvastatin 40 mg per day, heparin 5000 units subcu q.8 hours, and Coumadin. Of note, patient was previously on carvedilol 3 mg b.i.d., losartan 25 mg per day, and Aldactone 25 mg per day. ALLERGIES: No known drug allergies. SOCIAL HISTORY: The patient denies current tobacco or excessive alcohol intake. FAMILY HISTORY: Positive for premature coronary artery disease. REVIEW OF SYSTEMS: The patient reports no fevers or purulent sputum production. He has no GI bleeding symptoms such as hematemesis, melena, or bright red blood per rectum. Rest of 10-point review of systems is negative. PHYSICAL EXAM: VITAL SIGNS: Afebrile, pulse 67 and regular, blood pressure 102/ 70, respirations 17, on 1.5 L/min 99%. Weight 101.4 kg. GENERAL: A normal- appearing gentleman in no acute distress without chest pain or using excess respiratory muscles. EYES: Pupils equal, reactive to light. ENT: Oral mucosa with no cyanosis. NECK: Jugular venous pressure to 7 cm. Carotid pulses 2+ bilaterally. LUNGS: Occasional crackles at the bases consistent with atelectasis. No obvious wheezing heard. HEART: Normal PMI. Regular rate and rhythm with no obvious murmurs or S3. Pericardial rub is heard. ABDOMEN: Soft and nontender. No guarding or rebound. No ascites. EXTREMITIES: Peripheral pulses 1 to 2+ including femoral and pedal pulses. No edema noted. MUSCULOSKELETAL: No scoliosis. NEUROLOGICAL: Normal affect and mood. Neck with no nuchal rigidity. SKIN: No bleeding or cyanosis. LABORATORY DATA: White count 18.1, hematocrit 33, platelets 99,000. INR 1.23. Sodium 135, potassium 4.1, chloride 102, bicarb 23, BUN 26, creatinine 1.2, glucose 120. IMPRESSION: A 57-year-old gentleman with extensive coronary artery disease status post coronary artery bypass grafting x3 vessels and mitral valve repair and ligation of left atrial appendage with chronic ischemic systolic heart failure with a left ventricular ejection fraction of 15% and an automatic implantable cardioverter-defibrillator with ventricular tachycardia. He is doing quite well post cardiac surgery especially considering how low his ejection fraction was going into surgery. He did not need perioperative ECMO or VATS support and he is off all intravenous inotropes. He appears relatively euvolemic today. RECOMMENDATIONS: 1. No change in current medications. 2. Probably tomorrow we will restart him on Coreg, losartan, and Aldactone. 3. Patient is going to be upgraded to a biventricular AICD later this week. 4. For now, we will continue on amiodarone as an antiarrhythmic to prevent further ventricular tachycardia. Thank you for allowing me to participate in the care of the patient. I will follow along closely with you during his hospitalization. /[id number]/MODL MTDD
[2018-07-27] MEDS: ACETAMINOPHEN 325 MG TAB PO PRN (23:23)
[2018-07-28] MEDS: POLYETHYLENE GLYCOL 3350 17 GM PKT PO PRN (04:35)
[2018-07-28] MEDS: ACETAMINOPHEN 325 MG TAB PO PRN ×3 (04:41→19:41)
[2018-07-28 04:46] LABS: INR 1.24 (0.83-1.16); PROTIME(PATIENT) 15.1 SEC (12.0-15.0)
[2018-07-28] MEDS: HEPARIN 5,000 UNIT/0.5 ML INJ SC SCH ×3 (06:10→20:58)
--- NOTE | 2018-07-28 07:37 | SOAPPROG ---
SOAP Progress Note Assessment/Plan: Assessment: POD#3 CABGx3 (EMMANUEL-LAD, SV sequentially PLBR and PDA), EVH RLE, MVA# 28 Physio ring, AtriClip ligation DAVID, Placement RFA IABP Severe CAD/ISR LAD and RCA stents - Revascularized with CABG. Stable early postop course. Secondary prevention with baby ASA, BB and statin when appropriate. Plavix no longer necessary. ISCM with LVEF 15% and chronic class II mixed CHF - Off CPB with IABP and dopamine. IABP out POD#1. Successfully weaned off dopa POD#2. Active diuresis of significant volume overload in progress. Staggered reintro of heart failure meds as tolerated. Dr Sarmiento following. Functional mitral regurgitation - Amenable to ring annuloplasty. Antithrombotic prophylaxis with coumadin initiated. Target INR 2-3, duration 2 mo. Presence of dual chamber ICD - Hx of prior [place]/VT. Stable postop rhythm on prophylactic amio. TCPW out. Revision of dislodged fredy sinus lead later this week as per EP cards. Acute expected blood loss anemia with thrombocytopenia and mild coagulopathy - Stable s/p 2u PRBC. Coumadin started. VTE prophylaxis with SCDs and SQ hep until INR > 1.8. Acute postoperative respiratory insufficiency - Stable. Extubated POD#1 without incident. Minimal suppl O2 req. Plan: Remove ant mediastinal drain Cont amio 400 mg daily Inc Coumadin to 5 mg today Cont gentle diuresis Start Coreg tonight Baseline postop echo Wed Transfer to PCU. 07/28/18 07:36 Subjective: Doing ok. Trying to get by on tylenol as too sleepy on Percs. Able to get 4 walks in yest, albeit at a slow pace and with multiple breaks. Objective: Vital Signs Temp Pulse Resp BP Pulse Ox 37.3 C 81 23 H 109/75 98 07/28/18 04:18 07/28/18 04:18 07/28/18 04:18 07/28/18 04:18 07/28/18 04:18 Laboratory Results 07/28/18 04:16 07/28/18 04:16 07/27/18 07/28/18 07/29/18 05:59 05:59 05:59 Intake Total 2837 1650 Output Total 2685 1170 Balance 152 480 PT 15.1 SEC (12.0-15.0) H 07/28/18 04:16 INR 1.24 (0.83-1.16) H 07/28/18 04:16 Holding SR MAPs > 70 and renal fx normalized Excellent sats on 1 lpm O2 Balanced I/Os. +9 kg overall. CXR-> mild pulm vasc congestion, left basilar atelectasis INR slow to rise Physical Exam - Physical Exam General Appearance: alert, no apparent distress Respiratory: crackles (bases), other (blakes x 2 to bulb suction, thin serosang drainage) Cardiac/Chest: regular rate, rhythm, other (Sternotomy and RLE venotomy CDI) Abdomen: non-tender, soft Skin: warm/dry Extremities: swelling (1+ gen) ICD10 Worksheet Patient Problems: Problems Problem Status Onset On intra-aortic balloon pump assist Acute S/P CABG x 3 Acute S/P MVR (mitral valve repair) Acute S/P left atrial appendage ligation Acute AMI (acute myocardial infarction) Acute Chest pain Acute Congestive heart failure (CHF) Acute
[2018-07-28] MEDS: ASPIRIN 81 MG CHEWABLE TAB PO SCH (08:54)
[2018-07-28] MEDS: SENNOSIDES/DOCUSATE SODIUM TAB PO SCH ×2 (08:54→19:44)
[2018-07-28] MEDS: AMIODARONE HCL 200 MG TAB PO SCH (08:55)
[2018-07-28] MEDS: PANTOPRAZOLE SODIUM 40 MG TAB PO SCH (08:55)
[2018-07-28] MEDS ORDERED: FUROSEMIDE 20 MG/2 ML VIAL IVP ONE (09:00)
[2018-07-28] MEDS: traMADol 50 MG TAB PO PRN ×3 (09:11→19:41)
--- NOTE | 2018-07-28 09:56 | SOAPPROG ---
SOAP Progress Note Assessment/Plan: Assessment: 57 y/o man first [place] 2000 with severe 3V CAD, preop LVEF 15%, normal RVEF and moderate MR and malignant VT underwent CABG x 3V, MV repair and excision of DAVID POD #3 now. He is in NSR and not on IV inotropic support. He was on low dose Coreg, Aldactone and Losartan preop. He appears euvolemic today. He is doing well except not great respiratory effort and has some atelectasis on physical exam. Appears euvolemic. PLAN: 1)start Coreg 3.125mg PO BID today 2)rest of meds without changes. 3)discussed with patient important of using his pulmonary incentive spirometer 4)probably restart Aldactone and losartan in next 1-2 days. 5)upgrade to BIVAICD later this week. 07/28/18 09:53 Subjective: feels a little stronger. Has sternotomy pain and pain in skin incision line of drainage tubes. No palpitations or angina. Objective: Vital Signs Temp Pulse Resp BP Pulse Ox 37.0 C 77 20 101/69 100 07/28/18 07:43 07/28/18 07:43 07/28/18 07:43 07/28/18 07:43 07/28/18 07:43 Laboratory Results 07/28/18 04:16 07/28/18 04:16 07/27/18 07/28/18 07/29/18 05:59 05:59 05:59 Intake Total 2837 1650 325 Output Total 2685 1170 445 Balance 152 480 -120 PT 15.1 SEC (12.0-15.0) H 07/28/18 04:16 INR 1.24 (0.83-1.16) H 07/28/18 04:16 Physical Exam - Physical Exam General Appearance: alert EENT: normal ENT inspection Neck: non-tender Respiratory: rales (at bases bilaterally.) Cardiac/Chest: regular rate, rhythm, systolic murmur, friction rub, No gallop ( less of a pericardial rub today than yesterday.), No JVD Peripheral Pulses: 2+: carotid (R), carotid (L), femoral (R), femoral (L), dorsalis-pedis (R), dorsalis-pedis (L) Abdomen: non-tender, No guarding, No rebound Skin: warm/dry Extremities: No pedal edema Neuro/Psych: alert ICD10 Worksheet Patient Problems: Problems Problem Status Onset On intra-aortic balloon pump assist Acute S/P CABG x 3 Acute S/P MVR (mitral valve repair) Acute S/P left atrial appendage ligation Acute AMI (acute myocardial infarction) Acute Chest pain Acute Congestive heart failure (CHF) Acute
--- NOTE | 2018-07-28 10:25 | ECHO ---
[email or web address] [address] [address] Main: [phone] Echocardiography Examination Transthoracic Name: ALANIS DOUGLAS MR#: [id number] Study Date: 07/27/2018 Study Time: 01:18 PM Date of : 1960 Age: 57 year(s) Height: 172.7 cm (68 in.) Weight: 95.26 kg (210 lb.) BSA: 2.09 m2 Gender: Male Examination: Echo Contrast: Image Quality: Rhythm: Normal sinus rhythm Heart Rate: 71 bpm BP: 120 mmHg/77 mmHg Indication: Post CABG, MV repair Procedure Staff Referring Physician: [employer] Supervisor: Jerrod Encinas RDCS Reading Physician: Dhiraj Sarmiento MD Requesting Provider: Ordering Physician: Katia Jasso Indication: Post CABG, MV repair Measurements Chambers AV/MV Label Value Normal Value Label Value Normal Value LVOT Vmax 0.53 m/s (0.7m/s - 1.1m/s) AV PGmax 4 mmHg LVOTd 2.1 cm (1.9cm - 2.1cm) AV PGmean 2 mmHg LVOT VTI 9.85 cm (18cm - 22cm) AV Vmax 1.03 m/s LVDd, MM 8.8 cm (4.2cm - 5.9cm) KAMILLA (Vmax) 1.8 cm2 LVDd, 2D 7.3 cm (4.2cm - 5.9cm) KAMILLA (VTI) 1.9 cm2 LVDs, MM 8.1 cm (2cm - 3.8cm) MV E Vmax 1.26 m/s LVDs, 2D 6.9 cm (2.1cm - 4cm) MV A Vmax 0.64 m/s IVSd, MM 0.6 cm (0.6cm - 0.9cm) MV E/A 1.97 IVSd, 2D 0.7 cm (0.6cm - 1.1cm) MV DT 218 ms LVPWd, MM 0.8 cm (0.6cm - 1cm) MV VTI 33.6 cm LVPWd, 2D 1 cm (0.6cm - 1cm) MV PGmax 8 mmHg LVEF, BP 12 % (55% - 70%) MV PGmean 3 mmHg LVEF, 2D 12 % (54% - 74%) MV PHT 0.06 s LVOT PGmean 1 mmHg MVA PHT 3.7 cm2 LVOT Vmean 0.33 m/s MV PHT 59 ms RVDd, 2D 3 cm (1.9cm - 3.8cm) TV/PV LA Volume, BP 156 ml (18ml - 58ml) Label Value Normal Value LADs, 2D 4.7 cm (3cm - 4cm) ME End murcia Efrain 0.72 cm/s LAESV index, BP 74.6 ml/m2 PV PGmax 2 mmHg Patient: ALANIS DOUGLAS Study Date: 07/27/2018 Page 1 of 3 01:18 PM Additional Vessels PV Vmax, Caliper 0.79 m/s (0.6m/s - 0.9m/s) Label Value Normal Value AoRoot, MM 3.8 cm (2.2cm - 3.7cm) Conclusions Left Ventricle: CONCLUSIONS:1)Severely reduced LV systolic function with a LVEF of 12%. There are focal wall motion abnormalities. The best moving wall is the lateral wall.2)Severe LV enlargement noted.3)Moderate diastolic dysfunction noted.4)Mildly reduced RV systolic function.5)Moderate left atrial enlargement noted.6)AICD wires noted in right heart chambers.7)Mitral valve s/p surgical annular ring with no MR.8)No pericardial effusion noted. Findings Left Ventricle: Left ventricle is markedly dilated. CONCLUSIONS: 1)Severely reduced LV systolic function with a LVEF of 12%. There are focal wall motion abnormalities. The best moving wall is the lateral wall. 2)Severe LV enlargement noted. 3)Moderate diastolic dysfunction noted. 4)Mildly reduced RV systolic function. 5)Moderate left atrial enlargement noted. 6)AICD wires noted in right heart chambers. 7)Mitral valve s/p surgical annular ring with no MR. 8)No pericardial effusion noted. The ejection fraction, measured by Simpsons method, is 12 %. Left ventricle wall thickness is normal. Grade III Diastolic Dysfunction. Right Ventricle: Normal size right ventricle. Right ventricular systolic function is mildly reduced. There is a pacing/ICD wire present in the right ventricle. Left Atrium: The left atrium is moderately dilated. Right Atrium: The right atrium is normal in size. Mitral Valve: There is no rocking motion of the sewing ring in the mitral valve. Aortic Valve: Aortic leaflets are normal in appearance and function. No aortic valve regurgitation. There is no aortic stenosis. The aortic valve is trileaflet. Tricuspid Valve: Tricuspid valve leaflets are normal in appearance and function. Mild tricuspid regurgitation. Pulmonic Valve: Pulmonic leaflets are normal in appearance and function. Aorta: The aortic root size in M-mode measures 3.8 cm. Aorta Measurements AoRoot, MM is 3.8 cm. Exam Details Procedure Ordered: Echo (No Signature Object) Patient: ALANIS DOUGLAS Study Date: 07/27/2018 Page 2 of 3 01:18 PM Patient: ALANIS DOUGLAS Study Date: 07/27/2018 Page 3 of 3 01:18 PM [id number]
[2018-07-28] MEDS ORDERED: WARFARIN SODIUM 5 MG TAB PO ONE (16:00)
[2018-07-28] MEDS: CARVEDILOL 3.125 MG TAB PO SCH (18:58)
[2018-07-28] MEDS: ATORVASTATIN CALCIUM 40 MG TAB PO SCH (19:41)
[2018-07-29] MEDS: ACETAMINOPHEN 325 MG TAB PO PRN ×3 (03:41→16:01)
[2018-07-29] MEDS: traMADol 50 MG TAB PO PRN (03:41)
[2018-07-29 03:54] LABS: INR 1.28 (0.83-1.16); PROTIME(PATIENT) 15.5 SEC (12.0-15.0)
[2018-07-29] MEDS: HEPARIN 5,000 UNIT/0.5 ML INJ SC SCH ×3 (06:28→22:14)
--- NOTE | 2018-07-29 07:50 | SOAPPROG ---
SOAP Progress Note Assessment/Plan: Assessment: POD#4 CABGx3 (EMMANUEL-LAD, SV sequentially PLBR and PDA), EVH RLE, MVA# 28 Physio ring, AtriClip ligation DAVID, Placement RFA IABP Severe CAD/ISR LAD and RCA stents - Revascularized with CABG. Stable early postop course. Secondary prevention with baby ASA, BB and statin when appropriate. Plavix no longer necessary. ISCM with LVEF 15% and chronic class II mixed CHF - Off CPB with IABP and dopamine. IABP out POD#1. Successfully weaned off dopa POD#2. Active diuresis of significant volume overload in progress. 1 of 2 chest tubes out. Staggered reintro of heart failure meds as tolerated. Dr Sarmiento following. Functional mitral regurgitation - Amenable to ring annuloplasty. Antithrombotic prophylaxis with coumadin initiated. Target INR 2-3, duration 2 mo. Presence of dual chamber ICD - Hx of prior [place]/VT. Stable postop rhythm on prophylactic amio. TCPW out. Revision of dislodged fredy sinus lead for PRE [employer]IRER later this week (tentatively Thur) or as per EP cards. Acute expected blood loss anemia with thrombocytopenia and mild coagulopathy - Stable s/p 2u PRBC. Coumadin started. VTE prophylaxis with SCDs and SQ hep until INR > 1.8. Acute postoperative respiratory insufficiency - Stable. Extubated POD#1 without incident. Minimal suppl O2 req. Plan: Remove left pleural drain Cont amio 400 mg daily Cont Coumadin 5 mg daily Cont Coreg 3.125 mg BID Intensify diuresis Cont inc activity as tolerated 07/29/18 07:47 Subjective: Left knee pain below patella (c/w prior "tweaks") limiting mobility but has been OOB. Objective: Vital Signs Temp Pulse Resp BP Pulse Ox 36.8 C 79 16 101/73 97 07/29/18 07:26 07/29/18 07:26 07/29/18 07:26 07/29/18 07:26 07/29/18 07:26 Laboratory Results 07/28/18 04:16 07/29/18 03:33 07/28/18 07/29/18 07/30/18 05:59 05:59 05:59 Intake Total 1650 1575 Output Total 1170 1660 85 Balance 480 -85 -85 PT 15.5 SEC (12.0-15.0) H 07/29/18 03:33 INR 1.28 (0.83-1.16) H 07/29/18 03:33 Holding SR and MAPs > 65. Off O2. CTOP below removal criteria. CXR -> mild pulm vasc congestion, no sig pl eff, left basilar atelectasis. Balanced I/Os w stable renal fx. INR beginning to rise. Physical Exam - Physical Exam General Appearance: alert, no apparent distress Respiratory: lungs clear (grossly), other (yael to bulb suction, thin serosang drainage) Cardiac/Chest: regular rate, rhythm, other (Sternotomy and RLE venotomy CDI) Abdomen: non-tender, soft Skin: warm/dry Extremities: swelling (1+ dependent) ICD10 Worksheet Patient Problems: Problems Problem Status Onset On intra-aortic balloon pump assist Acute S/P CABG x 3 Acute S/P MVR (mitral valve repair) Acute S/P left atrial appendage ligation Acute AMI (acute myocardial infarction) Acute Chest pain Acute Congestive heart failure (CHF) Acute
[2018-07-29] MEDS: CARVEDILOL 3.125 MG TAB PO SCH ×2 (08:27→18:05)
[2018-07-29] MEDS: AMIODARONE HCL 200 MG TAB PO SCH (08:27)
[2018-07-29] MEDS: ASPIRIN 81 MG CHEWABLE TAB PO SCH (08:27)
[2018-07-29] MEDS: PANTOPRAZOLE SODIUM 40 MG TAB PO SCH (08:27)
[2018-07-29] MEDS: FUROSEMIDE 20 MG/2 ML VIAL IVP SCH ×2 (08:28→16:02)
[2018-07-29] MEDS ORDERED: SENNOSIDES/DOCUSATE SODIUM TAB PO PRN (09:00)
[2018-07-29] MEDS ORDERED: POTASSIUM CL 20 MEQ TAB PO SCH (09:00)
--- NOTE | 2018-07-29 15:45 | ASMTCMCOM ---
CM Note CM Note Notes: CM met with Rafita and spoke with his insurance follow up representative from [employer] ( [phone]) who reports [facility] is on the list of in network providers and [facility] is not. Pt reports he will likely stay in the area and not return to [place]. He says he is overwhelmed with everything that is happening and appreciates the support he is getting from staff here at [facility]. Per RN, pt is getting pacer on . He will need prior authorization from insurance so they will need to submit a few days before discharge. Plan: [facility] Date Signed: 07/29/2018 03:44 PM Electronically Signed By:ESHA Frey
[2018-07-29] MEDS ORDERED: WARFARIN SODIUM 5 MG TAB PO ONE (16:00)
[2018-07-29] MEDS: ATORVASTATIN CALCIUM 40 MG TAB PO SCH (21:35)
[2018-07-29] MEDS ORDERED: guaiFENesin/CODEINE PHOS 10 ML UDCUP PO PRN (21:48)
[2018-07-30] MEDS: ACETAMINOPHEN 325 MG TAB PO PRN (01:41)
[2018-07-30] MEDS: HEPARIN 5,000 UNIT/0.5 ML INJ SC SCH ×3 (05:12→22:08)
[2018-07-30] MEDS: traMADol 50 MG TAB PO PRN ×2 (05:12→15:24)
[2018-07-30 05:37] LABS: INR 1.41 (0.83-1.16); PROTIME(PATIENT) 16.6 SEC (12.0-15.0)
--- NOTE | 2018-07-30 07:24 | SOAPPROG ---
SOAP Progress Note Assessment/Plan: Assessment: POD#5 CABGx3 (EMMANUEL-LAD, SV sequentially PLBR and PDA), EVH RLE, MVA# 28 Physio ring, AtriClip ligation DAVID, Placement RFA IABP Severe CAD/ISR LAD and RCA stents - Revascularized with CABG. Stable early postop course. Secondary prevention with baby ASA, BB and statin. Plavix no longer necessary. ISCM with LVEF 15% and chronic class II mixed CHF - Off CPB with IABP and dopamine. IABP out POD#1. Successfully weaned off dopa POD#2. Active diuresis of significant volume overload in progress. Chest tubes out. Staggered reintro of heart failure meds as tolerated. Dr Sarmiento following. Functional mitral regurgitation - Amenable to ring annuloplasty. Antithrombotic prophylaxis with coumadin initiated. Target INR 2-3, duration 2 mo. Presence of dual chamber ICD - Hx of prior [place]/VT. Stable postop rhythm on prophylactic amio. TCPW out. Revision of dislodged fredy sinus lead for SENIOR DATA MODELER planned for tomorrow. Acute expected blood loss anemia with thrombocytopenia and mild coagulopathy - Stable s/p 2u PRBC. Coumadin. VTE prophylaxis with SCDs and SQ hep until INR > 1.8. Acute postoperative respiratory insufficiency - Stable. Extubated POD#1 without incident. Minimal suppl O2 req. Plan: Hold Coumadin NPO p MN for planned EP BIVAICD tomorrow afternoon Restart Aldactone, titrate as tolerated to home dose Decrease IV Lasix to once daily with starting Aldactone SN[facility] - likely Saturday if cleared by EP Subjective: Knee pain Objective: Vital Signs Temp Pulse Resp BP Pulse Ox 36.7 C 64 14 105/74 95 07/30/18 04:00 07/30/18 04:00 07/30/18 04:00 07/30/18 04:00 07/30/18 04:00 Laboratory Results 07/28/18 04:16 07/30/18 05:15 07/29/18 07/30/18 07/31/18 05:59 05:59 05:59 Intake Total 1575 350 Output Total 1660 1285 Balance -85 -935 PT 16.6 SEC (12.0-15.0) H 07/30/18 05:15 INR 1.41 (0.83-1.16) H 07/30/18 05:15 - Physical Exam General Appearance: alert, no apparent distress Respiratory: lungs clear (grossly), other (yael to bulb suction, thin serosang drainage) Cardiac/Chest: regular rate, rhythm, other (Sternotomy and RLE venotomy CDI) Abdomen: non-tender, soft Skin: warm/dry Extremities: swelling (1+ dependent) ICD10 Worksheet Patient Problems: Problems Problem Status Onset On intra-aortic balloon pump assist Acute S/P CABG x 3 Acute S/P MVR (mitral valve repair) Acute S/P left atrial appendage ligation Acute AMI (acute myocardial infarction) Acute Chest pain Acute Congestive heart failure (CHF) Acute
[2018-07-30] MEDS: AMIODARONE HCL 200 MG TAB PO SCH (08:35)
[2018-07-30] MEDS: ASPIRIN 81 MG CHEWABLE TAB PO SCH (08:37)
[2018-07-30] MEDS: POTASSIUM CL 10 MEQ TAB PO SCH (08:39)
[2018-07-30] MEDS: CARVEDILOL 3.125 MG TAB PO SCH ×2 (08:40→17:59)
[2018-07-30] MEDS: PANTOPRAZOLE SODIUM 40 MG TAB PO SCH (08:41)
[2018-07-30] MEDS: FUROSEMIDE 20 MG/2 ML VIAL IVP SCH (08:42)
[2018-07-30] MEDS ORDERED: SPIRONOLACTONE 25 MG TAB PO SCH (09:00)
--- NOTE | 2018-07-30 12:59 | SOAPPROG ---
SOAP Progress Note Assessment/Plan: Assessment: 57 y/o man first [place] 2000 with severe 3V CAD, preop LVEF 15%, normal RVEF and moderate MR and malignant VT underwent CABG x 3V, MV repair and excision of DAVID POD #5 now. He is in NSR and not on IV inotropic support. He was on low dose Coreg, Aldactone and Losartan preop. He appears euvolemic today. PLAN: 1)start Losartan 25mg PO qam. 2)increase Aldactone to 25mg PO qam. 3)upgrade to BIVAICD tomorrow by EP 4)probably saturday change IV lasix to PO Lasix 20mg PO daily 5)follow up [facility] CHF clinic upon discharge. 07/30/18 12:56 Subjective: feeling better. Transferred out of ICU. He is tired and weak. CATALAN at 100-200ft. Denies CP, palpitations, PND or near syncope. Objective: Vital Signs Temp Pulse Resp BP Pulse Ox 36.8 C 77 18 105/73 92 07/30/18 11:47 07/30/18 11:47 07/30/18 11:47 07/30/18 11:47 07/30/18 11:47 Laboratory Results 07/28/18 04:16 07/30/18 05:15 07/29/18 07/30/18 07/31/18 05:59 05:59 05:59 Intake Total 1575 350 Output Total 1660 1285 600 Balance -85 -935 -600 PT 16.6 SEC (12.0-15.0) H 07/30/18 05:15 INR 1.41 (0.83-1.16) H 07/30/18 05:15 Physical Exam - Physical Exam General Appearance: alert EENT: normal ENT inspection Neck: non-tender Respiratory: lungs clear Cardiac/Chest: regular rate, rhythm, gallop, JVD, No systolic murmur Peripheral Pulses: 2+: carotid (R), carotid (L), femoral (R), femoral (L), dorsalis-pedis (R), dorsalis-pedis (L) Abdomen: non-tender, No guarding, No rebound Skin: warm/dry Extremities: No pedal edema Neuro/Psych: alert ICD10 Worksheet Patient Problems: Problems Problem Status Onset On intra-aortic balloon pump assist Acute S/P CABG x 3 Acute S/P MVR (mitral valve repair) Acute S/P left atrial appendage ligation Acute AMI (acute myocardial infarction) Acute Chest pain Acute Congestive heart failure (CHF) Acute
[2018-07-30] MEDS: LOSARTAN POTASSIUM 25 MG TAB PO SCH (14:06)
--- NOTE | 2018-07-30 15:10 | ASMTCMCOM ---
CM Note CM Note Notes: CM reviewed pts chart. Anticipate d/c on Saturday. Pt is scheduled for an EP BIVAICD tomorrow. [facility] will start to get auth today. CM to follow. Plan: [facility] Date Signed: 07/30/2018 03:09 PM Electronically Signed By:ESHA Barber
[2018-07-30] MEDS ORDERED: WARFARIN SODIUM 3 MG TAB PO ONE (16:30)
[2018-07-30] MEDS: OXYCODONE/APAP 5/325 TAB PO PRN (22:08)
[2018-07-30] MEDS: ATORVASTATIN CALCIUM 40 MG TAB PO SCH (22:08)
[2018-07-31] MEDS: HEPARIN 5,000 UNIT/0.5 ML INJ SC SCH ×2 (05:43→10:20)
[2018-07-31] MEDS: traMADol 50 MG TAB PO PRN (05:43)
[2018-07-31 06:15] LABS: INR 1.38 (0.83-1.16); PROTIME(PATIENT) 16.4 SEC (12.0-15.0)
--- NOTE | 2018-07-31 07:12 | SOAPPROG ---
SOAP Progress Note Assessment/Plan: Assessment: POD#6 CABGx3 (EMMANUEL-LAD, SV sequentially PLBR and PDA), EVH RLE, MVA# 28 Physio ring, AtriClip ligation DAVID, Placement RFA IABP Severe CAD/ISR LAD and RCA stents - Revascularized with CABG. Stable early postop course. Secondary prevention with baby ASA, BB and statin when appropriate. Plavix no longer necessary. ISCM with LVEF 15% and chronic class II mixed CHF - Off CPB with IABP and dopamine. IABP out POD#1. Successfully weaned off dopa POD#2. Active diuresis of significant volume overload in progress. Chest tubes out. Staggered reintro of heart failure meds as tolerated. Dr Sarmiento following. Functional mitral regurgitation - Amenable to ring annuloplasty. Antithrombotic prophylaxis with coumadin initiated. Target INR 2-3, duration 2 mo. Presence of dual chamber ICD - Hx of prior [place]/VT. Stable postop rhythm on prophylactic amio. TCPW out. Revision of dislodged fredy sinus lead for MEASUREMENT OPERATOR tentatively today or as per EP cards. Acute expected blood loss anemia with thrombocytopenia and mild coagulopathy - Stable s/p 2u PRBC. Coumadin started. VTE prophylaxis with SCDs and SQ hep until INR > 1.8. Acute postoperative respiratory insufficiency - Resolved. Extubated POD#1 without incident. No ongoing suppl O2 needs. Plan: NPO for culture media laboratory assistant Heart failure regimen as per Dr Sarmiento Resume coumadin tonight if ok w EP Dispo - Anticipate SNF ([facility]) within 2 days if ok w Precious 07/31/18 07:07 Subjective: Feels fine. No acute concerns. Objective: Vital Signs Temp Pulse Resp BP Pulse Ox 36.8 C 85 20 113/72 96 07/31/18 04:00 07/31/18 04:00 07/31/18 04:00 07/31/18 04:00 07/31/18 04:00 Laboratory Results 07/28/18 04:16 07/31/18 05:45 07/30/18 07/31/18 08/01/18 05:59 05:59 05:59 Intake Total 350 1570 Output Total 1285 1400 Balance -935 170 PT 16.4 SEC (12.0-15.0) H 07/31/18 05:45 INR 1.38 (0.83-1.16) H 07/31/18 05:45 Cardioresp status stable. On his way to imaging for CXR. Physical Exam - Physical Exam General Appearance: alert, no apparent distress Cardiac/Chest: regular rate, rhythm Skin: normal color ICD10 Worksheet Patient Problems: Problems Problem Status Onset On intra-aortic balloon pump assist Acute S/P CABG x 3 Acute S/P MVR (mitral valve repair) Acute S/P left atrial appendage ligation Acute AMI (acute myocardial infarction) Acute Chest pain Acute Congestive heart failure (CHF) Acute
[2018-07-31] MEDS: AMIODARONE HCL 200 MG TAB PO SCH (08:17)
[2018-07-31] MEDS: CARVEDILOL 3.125 MG TAB PO SCH ×2 (08:17→18:38)
[2018-07-31] MEDS: PANTOPRAZOLE SODIUM 40 MG TAB PO SCH (08:17)
[2018-07-31] MEDS: ASPIRIN 81 MG CHEWABLE TAB PO SCH (08:19)
[2018-07-31] MEDS: LOSARTAN POTASSIUM 25 MG TAB PO SCH (08:19)
[2018-07-31] MEDS: POTASSIUM CL 10 MEQ TAB PO SCH (08:19)
[2018-07-31] MEDS: FUROSEMIDE 20 MG/2 ML VIAL IVP SCH (08:20)
[2018-07-31] MEDS ORDERED: SPIRONOLACTONE 25 MG TAB PO SCH (09:00)
[2018-07-31] MEDS ORDERED: NS 1,000 ML IV ONE (10:24)
[2018-07-31] MEDS ORDERED: ceFAZolin 2 GM/DEXTROSE 100 ML IV ONE (10:24)
[2018-07-31] MEDS ORDERED: BACITRACIN IRRIGATION/NS 50,000 UNITS/1,000 ML BTL IRR ONE (10:24)
[2018-07-31] MEDS ORDERED: IOPAMIDOL (ISOVUE-300) 100 ML BTL ONE (12:06)
[2018-07-31] MEDS ORDERED: BUPIVACAINE 0.5% 30 ML SDV ONE (12:06)
--- NOTE | 2018-07-31 12:59 | PDANEPAE ---
ANE Past Medical History - Cardiovascular History Hx Hypertension: Yes Hx Arrhythmias: Yes Hx Chest Pain: No Hx Coronary Artery / Peripheral Vascular Disease: Yes Hx CHF / Valvular Disease: Yes Hx Palpitations: No - Pulmonary History Hx COPD: No Hx Asthma/Reactive Airway Disease: No Hx Recent Upper Respiratory Infection: No Hx Oxygen in Use at Home: No Hx Sleep Apnea: No Sleep Apnea Screening Result - Last Documented: Positive - Neurologic History Hx Cerebrovascular Accident: No Hx Seizures: No Hx Dementia: No - Endocrine History Hx Diabetes: No Hypothyroid: No Hyperthyroid: No Obesity: mild - Renal History Hx Renal Disorders: No - Liver History Hx Hepatic Disorders: No - Neurological & Psychiatric Hx Hx Neurological and Psychiatric Disorders: No - Cancer History Hx Cancer: No - Congenital Disorder History Hx Congenital Disorders: No - GI History GERD: mild Hx Gastrointestinal Disorders: No - Chronic Pain History Chronic Pain: No ANE Review of Systems Review of Systems: - Pacemaker Pacemaker [employer] Farmer: [place] Pacemaker Model: QT1237-61B Pacemaker Mode: DDD Pacemaker Set Rate: 0 ANE Patient History - Allergies Allergies/Adverse Reactions: No Known Allergies Allergy (Verified 04/28/18 09:34) - Home Medications Home medications: home medication list seen and reviewed Home Medications: Albuterol [Proventil Inhaler HFA (*)] 1 - 2 puffs IH Q4H PRN 04/21/18 [Last Taken 03/06/18 10:00] Aspirin [Aspirin 81mg (*)] 81 mg PO DAILY 04/21/18 [Last Taken 07/22/18] Atorvastatin Calcium [Lipitor 40 mg (*)] 40 mg PO HS 04/21/18 [Last Taken ] Carvedilol [Coreg (*)] 3.125 mg PO BID 04/21/18 [Last Taken 07/24/18] Clopidogrel Bisulfate [Plavix (*)] 75 mg PO HS 04/21/18 [Last Taken 07/24/18] Furosemide [Lasix 20 MG (*)] 20 mg PO Q2D 04/21/18 [Last Taken 07/22/18] Losartan Potassium [Cozaar 25 mg (*)] 25 mg PO DAILY 04/21/18 [Last Taken ] Potassium Cl [Klor-Con 10 meq (RX)] 10 meq PO Q2D 04/21/18 [Last Taken 07/23/18] Spironolactone [Aldactone 25 MG (*)] 25 mg PO DAILY@12 04/21/18 [Last Taken ] - NPO status NPO Status: no food or drink >8 hours NPO Since - Liquids (Date): 07/25/18 NPO Since - Liquids (Time): 00:00 NPO Since - Solids (Date): 07/25/18 NPO Since - Solids (Time): 00:00 - Anes Hx Anes Hx: no prior problems - Smoking Hx Smoking Status: Never smoked ANE Labs/Vital Signs - Labs Result Diagrams: 07/28/18 04:16 07/31/18 05:45 - Vital Signs Blood Pressure: 90/67 Heart Rate: 72 Respiratory Rate: 16 O2 Sat (%): 97 Height: 172.72 cm Weight: 96.9 kg ANE Physical Exam - Airway Neck exam: FROM Mallampati Score: Class 3 Mouth exam: normal dental/mouth exam - Pulmonary Pulmonary: no rales or rhonchi, reduced air movement - Cardiovascular Cardiovascular: regular rate and rhythym, no murmur, rub, or gallop - ASA Status ASA Status: IV ANE Anesthesia Plan Anesthesia Plan: MAC
[2018-07-31] MEDS ORDERED: fentaNYL 100 MCG/2 ML INJ ONE (13:19)
[2018-07-31] MEDS ORDERED: LIDOCAINE 1% 5 ML SDV ONE (13:29)
[2018-07-31] MEDS ORDERED: ePHEDrine SULFATE 25 MG/5 ML SYR ONE (13:31)
[2018-07-31] MEDS ORDERED: PROPOFOL 200 MG/20 ML VIAL ONE ×2 (14:45→15:45)
[2018-07-31] MEDS ORDERED: LIDOCAINE 2% 2 ML INJ ONE (16:45)
[2018-07-31] MEDS ORDERED: WARFARIN SODIUM 5 MG TAB PO ONE (17:00)
[2018-07-31] MEDS ORDERED: ONDANSETRON 4 MG/2 ML VIAL IVP PRN (17:04)
[2018-07-31] MEDS ORDERED: fentaNYL 100 MCG/2 ML INJ IVP PRN (17:04)
[2018-07-31] MEDS ORDERED: NALOXONE HCL 0.4 MG/ML INJ IVP PRN (17:04)
--- NOTE | 2018-07-31 17:09 | CPEKG ---
Test Reason : OPEN Blood Pressure : / mmHG Vent. Rate : 064 BPM Atrial Rate : 066 BPM P-R Int : 175 ms QRS Dur : 169 ms QT Int : 436 ms P-R-T Axes : 066 004 051 degrees QTc Int : 450 ms Atrial-sensed ventricular-paced complexes Confirmed by Sachin Parra ([id number]) on 07/31/2018 5:09:06 PM Referred By: Rios Rodriguez Confirmed By:Sachin Parra
--- NOTE | 2018-07-31 17:14 | POSTANESTH ---
Post Anesthetic Evaluation Cardiovascular Status: Similar to Pre-Op Cond Respiratory Status: Normal, Stable, Similar to Pre-op Cond. Level of Consciousness/Mental Status: Can Participate in Eval, Mildly Sleepy, Arousable Pain Control: Adequate, Prn Tx Ordered Nausea/Vomiting Control: Adequate, Prn Tx Ordered Complications Possibly Related to Anesthesia: None Noted
--- NOTE | 2018-07-31 17:45 | EPPROC ---
Electrophysiology Procedure Note: Date: 07/31/2018 Disassembler Product: Jeremy Potts MD Procedures: Bi V lead [id number] Indications: 57-year-old male with chronic systolic heart failure related to ischemic cardiomyopathy, status post implantation of Bi V ICD system 3 months prior. His left ventricular lead has retracted, suspect due to ratchet mechanism, and he presents for LV lead revision. Techniques: Following informed consent, the patient was brought to the EP lab in a fasting nonsedated state, in sinus rhythm. IV antibiotics were administered. IV sedation was provided by the anesthesiology service. ICD tachy therapies were disabled. The left anterior chest was prepped and draped in usual sterile fashion. Cutdown was performed over the chronic incision site , and the system was taken out of pocket. The LV lead was disconnected from the pulse generator. Manual traction on the LV lead did confirm that the lead was loose within the retention sleeve. Additionally, the RA and RV leads both appeared to be loose in the retention sleeves. The retention sleeve was cut of the chronic LV lead. Multiple attempts were made to retain left subclavian venous access, 1st by passing a coronary wire through the LV lead (this was unsuccessful as the wire was unable to be passed through the distal tip of the lead), then by feeding a micropuncture wire through the outer insulation of the LV lead (the micro puncture access sheath was unable to be threaded past a focal stenosis in the left subclavian vein). Left upper extremity venogram was performed, which showed a widely patent left subclavian venous system, with a focal stenosis at the prior access site. Access was then obtained under fluoroscopic guidance in the extra thoracic portion of the left subclavian vein. The chronic LV lead was then removed. A 9 [place] CS sheath was inserted over the access wire. The coronary sinus was difficult to engage, and multiple attempts were required, using the Edmundo inner catheter, as well as a deflectable multipolar EP catheter. A proximal CS dissection was evident after multiple attempts to cannulate the CS, but ultimately CS cannulation was achieved, and the [place] sheath was able to be advanced past the proximal dissection flap. Occlusive venogram of the CS demonstrated 2 large lateral branches of the CS. An attempt was initially made to place a J2EE ENGINEER lead in the anterolateral branch, however after full deployment of a J2EE ENGINEER lead over a coronary wire in this location, the lead was observed to withdraw from its final position. The posterolateral branch was then engaged with the J2EE ENGINEER lead over a coronary wire, using a 135 degree sub selector. The lead was able to be advanced to a distal position in the posterolateral branch. The sub selector was slit, and the [place] outer sheath was peeled. The lead demonstrated stable position in the CS branch. The new lead was anchored to the underlying fascia using 2 separate suture retention sleeves, and 4 nonabsorbable sutures. An additional nonabsorbable suture was added to each of the retention sleeves for the RA and RV leads. Manual traction on all 3 leads demonstrated that the leads were secure within the retention sleeves. All 3 leads were connected to the chronic pulse generator. The system was replaced in the pocket, and a non resorbable stay suture was applied to the can. The pocket was irrigated with antibiotic solution and D Stat hemostatic matrix was injected. The incision was closed in layers using resorbable sutures, and dressed with Steri-Strips. Final fluoroscopic survey showed stable system position, and no evidence of pneumothorax. The patient tolerated the procedure well. Pulse generator: [facility] 3369-40Q, SN [id number], implant 04/23/18 RA lead: SJM 2088TC, SN [id number], implant 04/23/18 4.7mV, 390ohms, 0.7V@0.5ms RV lead: SJM 7122Q, SN [id number], implant 04/23/18 12.0mV, 540ohms, 0.5V@0.5ms LV lead active: SJ 1458Q, SN [id number], implant 07/31/18 583ohms, 1.5V@0.5ms LV lead removed: SJ 1457Q, SN [id number], implant 04/23/18 EBL: Minimal Complications: None Assessment: Successful revision of Bi V ICD with replacement of left ventricular lead Plan: Stat chest x-ray due to difficult left subclavian access (reviewed primary image and report, no evidence of pneumothorax) Bedrest 4 hr post procedure Left upper extremity restrictions for 1 month Keep incision dry for 2 days Chest x-ray and interrogation in a.m. Patient Problems: Problems Problem Status Onset On intra-aortic balloon pump assist Acute S/P CABG x 3 Acute S/P MVR (mitral valve repair) Acute S/P left atrial appendage ligation Acute AMI (acute myocardial infarction) Acute Chest pain Acute Congestive heart failure (CHF) Acute
[2018-07-31] MEDS: OXYCODONE/APAP 5/325 TAB PO PRN (18:37)
[2018-07-31] MEDS: ATORVASTATIN CALCIUM 40 MG TAB PO SCH (21:01)
[2018-08-01] MEDS: ACETAMINOPHEN 325 MG TAB PO PRN (05:45)
[2018-08-01 05:48] LABS: PLATELET COUNT 223 10^3/uL (150-400)
[2018-08-01 05:59] LABS: INR 1.52 (0.83-1.16); PROTIME(PATIENT) 17.6 SEC (12.0-15.0)
--- NOTE | 2018-08-01 07:26 | SOAPPROG ---
SOAP Progress Note Assessment/Plan: Assessment: POD#7 CABGx3 (EMMANUEL-LAD, SV sequentially PLBR and PDA), EVH RLE, MVA# 28 Physio ring, AtriClip ligation DAVID, Placement RFA IABP POD#1 Successful revision of BiV ICD with replacement of left ventricular lead Severe CAD/ISR LAD and RCA stents - Revascularized with CABG. Stable early postop course. Secondary prevention with baby ASA, BB and statin. Plavix no longer necessary. ISCM with LVEF 15% and chronic class II mixed CHF - Off CPB with IABP and dopamine. IABP out POD#1. Successfully weaned off dopa POD#2. Active diuresis of significant volume overload in progress. Stable renal fx. Chest tubes out. Heart failure regimen reinstituted as per Dr Sarmiento. Functional mitral regurgitation - Amenable to ring annuloplasty. Antithrombotic prophylaxis with coumadin initiated. Target INR 2-3, duration 2 mo. Presence of dual chamber ICD - Hx of prior [place]/VT. Stable postop rhythm on prophylactic amio. TCPW out. Dislodged fredy sinus lead revised. SUPERINTENDENT QUARRY resumed. Acute expected blood loss anemia with thrombocytopenia and mild coagulopathy - Stable s/p 2u PRBC. Coumadin started. VTE prophylaxis with SCDs and SQ hep until INR > 1.8. Acute postoperative respiratory insufficiency - Resolved. Extubated POD#1 without incident. Borderline suppl O2 needs. Postoperative left knee pain - Attributed to a "tweak" while standing up early postop. Hx of similar pain and swelling in the past, usually responsive to rest and compression wrap, however this episode seems to be getting worse. Ortho consult requested. Plan: Cont current meds. Ortho to see. Interim ice applications prn. Dispo - SNF ([facility]) later today if ok w EP cards and ortho. 08/01/18 07:25 Subjective: Inc left knee pain and swelling. Struggling to walk. Objective: Vital Signs Temp Pulse Resp BP Pulse Ox 36.9 C 82 20 114/77 96 08/01/18 04:00 08/01/18 04:00 08/01/18 04:00 08/01/18 04:00 08/01/18 04:00 Laboratory Results 08/01/18 05:30 08/01/18 05:30 07/31/18 08/01/18 08/02/18 05:59 05:59 05:59 Intake Total 1570 800 Output Total 1400 1850 Balance 170 -1050 PT 17.6 SEC (12.0-15.0) H 08/01/18 05:30 INR 1.52 (0.83-1.16) H 08/01/18 05:30 Physical Exam - Physical Exam General Appearance: alert, mild distress (with knee exam) Respiratory: decreased breath sounds (bases, R>L) Cardiac/Chest: regular rate, rhythm (paced), other (Sternum grossly stable. Sternotomy CDI) Abdomen: non-tender, soft Skin: warm/dry Extremities: swelling (1+ donor leg. RLE venotomy CDI. Venot tract ecchymotic without hematoma), other (left knee warm, +peripatellar effusion, tender to touch superior aspect of lateral patella) ICD10 Worksheet Patient Problems: Problems Problem Status Onset On intra-aortic balloon pump assist Acute S/P CABG x 3 Acute S/P MVR (mitral valve repair) Acute S/P left atrial appendage ligation Acute AMI (acute myocardial infarction) Acute Chest pain Acute Congestive heart failure (CHF) Acute
[2018-08-01] MEDS: CARVEDILOL 3.125 MG TAB PO SCH ×2 (08:01→17:07)
[2018-08-01] MEDS: AMIODARONE HCL 200 MG TAB PO SCH (08:01)
[2018-08-01] MEDS: FUROSEMIDE 20 MG/2 ML VIAL IVP SCH (08:01)
[2018-08-01] MEDS: PANTOPRAZOLE SODIUM 40 MG TAB PO SCH (08:01)
[2018-08-01] MEDS: POTASSIUM CL 10 MEQ TAB PO SCH (08:02)
[2018-08-01] MEDS: POLYETHYLENE GLYCOL 3350 17 GM PKT PO PRN (08:35)
[2018-08-01] MEDS ORDERED: LOSARTAN POTASSIUM 25 MG TAB PO SCH (09:00)
[2018-08-01] MEDS ORDERED: ASPIRIN 81 MG CHEWABLE TAB PO SCH (09:00)
--- NOTE | 2018-08-01 11:02 | CPEKG ---
Test Reason : OPEN Blood Pressure : / mmHG Vent. Rate : 075 BPM Atrial Rate : 075 BPM P-R Int : 218 ms QRS Dur : 163 ms QT Int : 456 ms P-R-T Axes : 103 -73 095 degrees QTc Int : 510 ms Sinus rhythm Prolonged KS interval Left bundle branch block Confirmed by Sachin Parra ([id number]) on 08/01/2018 11:02:11 AM Referred By: Kobi Mathew Confirmed By:Sachin Parra
[2018-08-01] MEDS: OXYCODONE/APAP 5/325 TAB PO PRN (11:35)
[2018-08-01] MEDS ORDERED: SPIRONOLACTONE 25 MG TAB PO SCH (12:00)
--- NOTE | 2018-08-01 14:36 | PDIAF ---
- Diagnosis Diagnosis: VT cardioverted by ICD, ISCM, CAD, MR s/p CABG/MVRpr; postop L knee arthrit Code Status: Full Code - Medication Management Additional Medication Instructions: Hold ASA for INR > 3. Call Kailee Conrad RN at [facility] for INR > 3 or < 1.5. Wear knee sleeve during the day. Ok to remove at night. 20 min ice applications to left knee 3-4 x daily prn comfort Discharge Medications: electronically signed and located in the Home Medication List. [facility] Care - Routine: N/A - Orders Services needed: Registered Nurse (cardiorespiratory and wound care monitoring) , Physical Therapy (2x daily), Occupational Therapy (once daily) Isolation Type: None Oxygen: prn SpO2 < 90% Diet Recommendation: cardiac -low fat low salt, fluid restriction (use comment for amount) (1800 ml daily) Diet Texture: Regular Texture Diet, Thin Liquids, Meds Whole w/Liquids Weigh Patient: daily Michaud: Not applicable Wound Care Instructions: see additional instruction section Activity/Weight Bearing Restrictions: see additional instruction section. Call Dr Stewart's office for progressive knee discomfort or swelling Additional Instructions: ICD instructions: Do not raise left arm above shoulder height or pull behind self for 4 weeks. Do not lift over 10lbs with left arm for Keep incision clean and dry thru 08/07. You may shower on August 04 but do not get dressing wet. Open heart surgery instructions: Call [facility] cardiac rehab to enroll in phase 2 classes if not contacted within 48hrs of discharge. Sternal precautions x 4 weeks. Avoid lifting > 10lbs with an outstretched arm. Avoid push/pull activities. No driving until cleared by surgery. Cleanse wounds once daily with soap and water. Avoid underwater immersion (pool , hot tub, bath) until scabs off. Ok to leave all wounds open to air. Avoid creams or ointments until scabs off. Elevate low legs at rest. Avoid prolonged standing or dangling. Log daily vital signs: weight, resting heart rate over 1 minute, blood pressure. Call [facility] for overnight weight gain > 2lbs, weekly gain > 5lbs or worsening leg swelling. Call [facility] for resting heart rate > 120 or < 60 OR for systolic blood pressure consistently < 90 or > 140. Please obtain a chest xray prior to surgical appointment. Use requisition form attached to appointment card. Chest x-rays don't require an appointment. Go to the Emergency Room entrance at the [facility] location. Sign in at the computer kiosk in the entryway. You will be given a number & may sit in the waiting area until called. You will be registered and directed to Imaging on the 1st floor. This process can take up to an hour. Please allow at least 30 min before your appt to get x-ray taken. Ok to use [id number] medications for iron supplementation, bowel function or pain. Consider Tylenol 500-650 mg with meals and before bed. Max daily dose of Tylenol 3000 mg. Each [place] contains 325 mg of Tylenol. Avoid nonsteroidal anti-inflammatories (ie. Ibuprofen, advil, motrin, aleve) x 3 months for interference with beneficial effects of aspirin on graft flow. Hold aspirin for INR > 3. Lifelong antibiotic prophylaxis prior to dental, respiratory tract, or skin/ soft tissue procedures. ORTHO wbat rom as blanca ice prn may use abraham wrap or short hinged knee brace prn f/u prn persistent or worsening pain [facility] [phone] justina - Labs/Radiology BMP Date: 08/06/18 (results to [facility]) CBC w/diff Date: 08/06/18 (results to [facility]) PT/INR Date: 08/04/18 (2x weekly until INR stable in therapeutic range) Imaging Orders: Chest xray prior to surgical appt. Please do at [facility] Call or Fax Lab and Imaging Results to: Dr Mathew's nurse, Kailee Conrad, [phone] - Follow Up Care Current Providers and Referrals: Kobi Mathew DO [Doctor of Osteopathy] - 08/12/18 10:45 am Pedrito Burger MD [Primary Care Provider] - Dhiraj Sarmiento MD [Medical Doctor] - (appt to be established at surgical visit) Siobhan Sahni NP [Certified Nurse Practioner] - (wound and pacemaker check August 07 at 1:[address] [facility]) Alexis Stewart MD [Medical Doctor] - (as needed for worsening left knee discomfort)
--- NOTE | 2018-08-01 14:37 | GCON ---
[f rep st] CONSULTATION INPATIENT CONSULTATION DATE OF CONSULTATION: 08/01/2018 PRIMARY CARE PHYSICIAN: Pedrito Burger MD. CHIEF COMPLAINT: Left knee pain. HISTORY OF PRESENT ILLNESS: The patient is a 57-year-old gentleman with a complicated cardiac histor y. He has been here for 1 week following a CABG. Yesterday, he underwent revision of a pacemaker wi re to his cardiac pacemaker. He is now in a sling across his left upper extremity. I have been aske d to evaluate him for onset and discomfort across his left knee. Currently, he states he has had a r ecurrent history of similar type pains to his right knee that has responded conservatively. Over the past week, he has noticed increasing pain to his left knee. He feels his knee is slightly warm to t he touch. He denies any specific trauma or injury. He noticed this after possibly tweaking his knee while participating in a post cardiac rehabilitation. Currently, he has pain that is 4 to 5/10 with light touch across the knee subjectively. He has difficulty standing. He notices improvement in hi s pain when he stands. He has noticed some similar previous discomfort to his left knee; however, th is has been more persistent. He does feel that this is interfering with his cardiac rehabilitation c urrently. PAST MEDICAL HISTORY: Cardiac. PAST SURGICAL HISTORY: CABG, pacemaker, revision of his pacemaker. MEDICATIONS: Aspirin, Lasix, losartan, Plavix, spironolactone. ALLERGIES: No known drug allergies. SOCIAL HISTORY: Occasional alcohol. Never smoked. Minimal exercise. 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 PHYSICAL EXAM: VITAL SIGNS: Currently blood pressure is 94/62, pulse is 84, respiratory rate is 20, he is 98% on 1 L. Temperature is 36.7, T-max 24 hours 36.9. His white count is 11.8, hematocrit is 32.5. GENERAL: This is a healthy pleasant gentleman who is in no acute distress. He has a sling a cross his left upper extremity. LEFT LOWER EXTREMITY: Focused examination of his left lower extremi ty reveals no surgical incisions. There is no current effusion. There is minimal warmth as compared with his right lower extremity. He has active full extension and flexion to 90 degrees with guardin g. He has sharp tenderness around the periphery of his kneecap. There is no palpable induration or crepitus. He has no inflammation of his bursa. There is no focal medial lateral joint line pain. Herson deal has no instability to varus or valgus stress. Tera's testing is unavailable currently. Sensat ion is grossly intact to light touch. His lower extremity has intact plantar flexion, dorsiflexion. Capillary refill is approximately 3 seconds. RADIOGRAPHS: AP, lateral and sunrise demonstrate moderate level of arthritis with marginal spurring throughout the patellofemoral joint medial and lateral aspect. There is slight narrowing of the medi al compartment. There is calcification of the posterior aspect of the knee on the lateral projection . There is no evidence of fracture or acute process and no swelling. IMPRESSION: Left knee pain. TREATMENT PLAN: I feel that this is exacerbation of patellofemoral arthritis from his underlying art hritis. I have recommended use of a supportive brace or Ari wrap, ice and elevation. He is not a ca ndidate for anti-inflammatory therapy currently. If he has persistent limiting pain or this fails to improve, he may then be a candidate for steroid injection. I did discuss this with him. This will likely take approximately 1 week to have its full onset as well. He may continue with oral pain cj shay, and I will make sure he has my contact information to follow up if his pain does not show any improvement over the next week. /[id number]/MODL
--- NOTE | 2018-08-01 14:44 | CPEKG ---
Test Reason : OPEN Blood Pressure : / mmHG Vent. Rate : 077 BPM Atrial Rate : 077 BPM P-R Int : 190 ms QRS Dur : 147 ms QT Int : 416 ms P-R-T Axes : 105 -66 115 degrees QTc Int : 471 ms Atrial-sensed ventricular-paced rhythm Confirmed by Sachin Parra ([id number]) on 08/01/2018 2:44:08 PM Referred By: Kobi Mathew Confirmed By:Sachin Parra
--- NOTE | 2018-08-01 14:46 | CPEKG ---
Test Reason : OPEN Blood Pressure : / mmHG Vent. Rate : 078 BPM Atrial Rate : 078 BPM P-R Int : 188 ms QRS Dur : 135 ms QT Int : 399 ms P-R-T Axes : 269 -66 097 degrees QTc Int : 455 ms Atrial-sensed ventricular-paced rhythm Confirmed by Sachin Parra ([id number]) on 08/01/2018 2:46:09 PM Referred By: Kobi Mathew Confirmed By:Sachin Parra
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
[2018-08-01 15:44] VITALS: BP 98/66
[2018-08-01] MEDS ORDERED: WARFARIN SODIUM 5 MG TAB PO SCH (16:00)
--- NOTE | 2018-08-01 16:56 | ASMTDCNOTE ---
Case Management Discharge Discharge Order Complete? Answers: Yes Patient to Obtain Answers: Other Notes: [facility] Transportation Arranged Answers: Other Notes: [facility] will Pick (Date 08/01/2018 06:30 PM & Time) Case Management Transport Answers: Yes Form Complete Faxed Final Orders Answers: Yes Agency/Facility Transfer Answers: Yes Report Printed & Faxed to Receiving Agency Discharge Comments Notes: CM spoke with pt and Matt from [email or web address]. Earliest they could get transport was 6:30. PT saw ortho for his knee and got knee brace. CM submit dc ppwk to [facility]. No other CM needs identified at this time. Date Signed: 08/01/2018 04:56 PM Electronically Signed By:ESHA Frey
--- NOTE | 2018-08-01 16:58 | ASDISCHSUM ---
Discharge Information Plan Status:SNF Medically Cleared to Leave: Discharge Date: D/C Disposition:[facility] Facility [facility] D/C Disposition: Projected Discharge Date:07/30/2018 11:00 AM Transportation at D/C:[facility] Van Discharge Delay Reason: Follow-Up Date:07/30/2018 11:00 AM Discharge Slot: Final Diagnosis: Placement Information Referral Type:*Correction/SNF Referral ID:[id number] Provider Name:Juani Barnhart Address 1:[address] Phone Number: Address 2: Fax Number: [facility]:[place] Selection Factors: State:[place] Patient Contact Information Contact Name:IBETHCHERRY Relationship:Sister Address:[address] City:[place] Alternate Phone: [facility]/Zip Code:[place] [address] Email: Financial Information Financial Class:[employer] Primary Plan Desc:ZE HENDERSON Primary Plan Number:[id number] Secondary Plan Desc: Secondary Plan Number: Assessment Information LACE LACE Length of stay for Answers: 7-13 days current admission Acuity / Level of Answers: Yes Care: Did the patient have an inpatient admission? Comorbidities - select Answers: Coronary Artery Disease all that apply Previous myocardial infarction Other Notes: HTN; HLD # of Emergency department Answers: 1-2 visits in the last 6 months Social determinants Answers: Lack of community resources and/or lack of social support (no pcp, lives alone, transportation, nuris d) Score: 17 Date Signed: 08/01/2018 04:56 PM Electronically Signed By:ESHA Frey [facility] CM Progress Note CM Note CM Note Notes: Patient to undergo CVS surgery today. Needs TBD at this time. Plan: TBD Date Signed: 07/25/2018 01:11 PM Electronically Signed By:Joelle Whitaker RN [facility] CM Progress Note CM Note CM Note Notes: Spoke w patient about d/c planning. He recently moved to [place] and drove himself back to [place] for an appt w Dr Rodriguez. He is now POD #1 CABG x3 and MVR. We discussed that it is not likely he can drive himself back to [place] anytime soon. When I asked if there was anyone here he could stay with upon d/c, he said "sorta." It doesn't sound like he has any good options. We discussed SNF which he seemed to agree was the best plan. I sent referrals to [facility] and [facility]. He has [employer], so we'll see. Case Management will follow. Date Signed: 07/27/2018 11:09 AM Electronically Signed By:Keara Grande RN [facility] CM Progress Note CM Note CM Note Notes: CM met with Rafita and spoke with his insurance sales associate from [employer] ( [phone]) who reports [facility] is on the list of in network providers and [facility] is not. Pt reports he will likely stay in the area and not return to [place]. He says he is overwhelmed with everything that is happening and appreciates the support he is getting from staff here at [facility]. Per RN, pt is getting pacer on . He will need prior authorization from insurance so they will need to submit a few days before discharge. Plan: [facility] Date Signed: 07/29/2018 03:44 PM Electronically Signed By:ESHA Frey [facility] CM Progress Note CM Note CM Note Notes: CM reviewed pts chart. Anticipate d/c on Saturday. Pt is scheduled for an EP [facility] tomorrow. Updates sent to [facility]. [facility] will start to get auth today. CM to follow. Plan: [facility] Date Signed: 07/30/2018 03:09 PM Electronically Signed By:ESHA Barber Case Management Discharge Plan Note Case Management Discharge Discharge Order Complete? Answers: Yes Patient to Obtain Answers: Other Notes: [facility] Medications Transportation Arranged Answers: Other Notes: [facility] Transport will Pick (Date 08/01/2018 06:30 PM & Time) Case Management Transport Answers: Yes Form Complete Faxed Final Orders Answers: Yes Agency/Facility Transfer Answers: Yes Report Printed & Faxed to Receiving Agency Discharge Comments Notes: CM spoke with pt and Matt from [facility]. Earliest they could get transport was 6:30. PT saw ortho for his knee and got knee brace. CM submit dc ppwk to [facility]. No other CM needs identified at this time. Date Signed: 08/01/2018 04:56 PM Electronically Signed By:ESHA Frey Intervention Information
== END 2018-08-01 20:05 | DRG 217 ==
LOC: FCATH 10:54 → F2W 16:08 → EEVIPCON 16:08 → F2W 17:39 → F2N 07-25 11:00 → F2W 07-29 15:03
PROVIDERS: ADMIT Thoracic Surgery (Cardiothoracic Vascular Surgery); ATTEND Thoracic Surgery (Cardiothoracic Vascular Surgery)
PROC: 02UG0JZ Supplement Mitral Valve with Synthetic Substitute, Open Approach (ICD-10-PCS; principal; 2018-07-24)
PROC: 02L70CK Occlusion of Left Atrial Appendage with Extraluminal Device, Open Approach (ICD-10-PCS; principal; 2018-07-24)
PROC: 02100Z9 Bypass Coronary Artery, One Artery from Left Internal Mammary, Open Approach (ICD-10-PCS; principal; 2018-07-24)
PROC: 021109W Bypass Coronary Artery, Two Arteries from Aorta with Autologous Venous Tissue, Open Approach (ICD-10-PCS; principal; 2018-07-24)
PROC: 5A1221Z Performance of Cardiac Output, Continuous (ICD-10-PCS; principal; 2018-07-24)
PROC: 06BQ4ZZ Excision of Left Saphenous Vein, Percutaneous Endoscopic Approach (ICD-10-PCS; principal; 2018-07-24)
PROC: B2111ZZ Fluoroscopy of Multiple Coronary Arteries using Low Osmolar Contrast (ICD-10-PCS; 2018-07-24)
PROC: 4A023N7 Measurement of Cardiac Sampling and Pressure, Left Heart, Percutaneous Approach (ICD-10-PCS; 2018-07-24)
PROC: B2151ZZ Fluoroscopy of Left Heart using Low Osmolar Contrast (ICD-10-PCS; 2018-07-24)
PROC: 30233N1 Transfusion of Nonautologous Red Blood Cells into Peripheral Vein, Percutaneous Approach (ICD-10-PCS; 2018-07-26)
PROC: 02PA3MZ Removal of Cardiac Lead from Heart, Percutaneous Approach (ICD-10-PCS; 2018-07-31)
PROC: 02HL3KZ Insertion of Defibrillator Lead into Left Ventricle, Percutaneous Approach (ICD-10-PCS; 2018-07-31)
DX: I34.0 Nonrheumatic mitral (valve) insufficiency (principal); I47.2 Ventricular tachycardia; T82.120A Displacement of cardiac electrode, initial encounter; T82.855A Stenosis of coronary artery stent, initial encounter; D68.9 Coagulation defect, unspecified; D62 Acute posthemorrhagic anemia; I11.0 Hypertensive heart disease with heart failure; I50.42 Chronic combined systolic (congestive) and diastolic (congestive) heart failure; I25.10 Atherosclerotic heart disease of native coronary artery without angina pectoris; R06.89 Other abnormalities of breathing; D69.59 Other secondary thrombocytopenia; I25.5 Ischemic cardiomyopathy; M17.12 Unilateral primary osteoarthritis, left knee; I25.2 Old myocardial infarction; K21.9 Gastro-esophageal reflux disease without esophagitis; E78.5 Hyperlipidemia, unspecified; I65.29 Occlusion and stenosis of unspecified carotid artery; Z95.810 Presence of automatic (implantable) cardiac defibrillator
CPT/HCPCS: 82435-PO; 82565-PO; 82947-PO; 83605-ER; 84132-PO; 84295-PO; 84520-PO; 85014-ER; 92610-GN; 97110-GP; 97116-GP; 97161-GP; 97165-GO; 97530-GO; 97530-GP; 97535-GO; A4649; C1725; C1730; C1769; C1900; J0153; J0171; J0282; J0330; J0690; J1250; J1265; J1644; J1815; J1940; J2001; J2150; J2250; J2260; J2370; J2440; J2704; J2720; J2765; J2930; J3010; J3475; J3480; P9016; P9041; Q9967

== ENCOUNTER → 2018-08-12 | Outpatient (CLI) | payer OTHER | LOC: FIMAGING 09:15 ==